=== PATIENT | female | born 1965 | race Caucasian/White ===

== ENCOUNTER 2021-07-20 08:19 | Outpatient (CLI) | payer OTHER, SELFPAY | END 2021-07-20 08:35 | disposition home or self-care (01) | LOC: INF 08:31 | PROVIDERS: PCP Nurse Practitioner; Visit Provider Internal Medicine | DX: Z45.2 Encounter for adjustment and management of vascular access device (principal) | CPT/HCPCS: 96523 ==

== ENCOUNTER 2021-07-26 08:09 | Outpatient (CLI) | payer OTHER, SELFPAY | END 2021-07-26 08:44 | disposition home or self-care (01) | LOC: INF 08:10 | PROVIDERS: PCP Nurse Practitioner; Visit Provider Internal Medicine | DX: Z45.2 Encounter for adjustment and management of vascular access device (principal) | CPT/HCPCS: 96523 ==

== ENCOUNTER 2021-08-09 11:02 | Outpatient (CLI) | payer OTHER, SELFPAY ==
[2021-08-09 11:14] VITALS: BMI 35.9
[2021-08-09 11:38] LABS: Basophils % 1.4 % (0.1-2.0); Eosinophils % 3.5 % (0.1-12.0); Hematocrit 25.1 % (37.0-47.0); Hemoglobin 9.1 g/dL (12.2-16.2); Lymphocytes # 0.6 K/mm3 (0.7-4.5); Lymphocytes % 61.8 % (10-50); Mean Corpuscular HGB Conc 36.2 g/dL (31.8-35.4); Mean Corpuscular Hemoglobin 34.3 pg (27.0-31.2); Mean Corpuscular Volume 94.6 fl (81-99); Mean Platelet Volume 7.2 fl (7.4-10.4); Monocytes # 0.1 K/mm3 (0.1-1.0); Monocytes % 12.1 % (1.7-9.3); Neutrophils # 0.2 K/mm3 (1.8-7.8); Neutrophils % 21.2 % (37.0-80.0); Platelet Count 175 K/mm3 (142-424); Red Blood Count 2.65 M/mm3 (4.20-5.40); Red Cell Distribution Width 20.1 % (11.5-17.5)
[2021-08-09 11:39] LABS: White Blood Count 0.9 K/mm3 (4.8-10.8)
[2021-08-09 11:41] LABS: MANUAL DIFFERENTIAL MANUAL DIFFERENTIAL (MANUAL DIFF)
--- NOTE | 2021-08-09 11:41 | PC.NURSE ---
critical lab result WBC of 0.9 were called by reginaldo in lab. lab result, and name were verified. aware, standing orders in place.
[2021-08-09 11:45] LABS: Chloride 102 mmol/L (98-107); Lymphocytes % 80 % (10-50); Monocytes % 7 % (2-9); Neutrophils % 13 % (42-76); Sodium 135 mmol/L (136-145); Total Cells Counted 15
[2021-08-09 11:46] LABS: Anisocytosis 1+; Hypochromasia 1+; Macrocytosis 1+; Platelet Estimate Normal; Poikilocytosis 1+; Potassium 4.2 mmoL/L (3.5-5.1)
[2021-08-09 11:48] LABS: Alanine Aminotransferase 43 U/L (12-78); Alkaline Phosphatase 98 U/L (38-126); Aspartate Amino Transferase 29 U/L (14-36); Bilirubin,Total 0.5 mg/dl (0.2-1.3); Blood Urea Nitrogen 14 mg/dl (7-17); Creatinine Clearance Estimated 115 mL/min (50-200); Estimated Glomerular Filt Rate 74 ml/min (>60); GFR (African American) 90 ML/MIN (>60)
[2021-08-09 11:49] LABS: Albumin/Globulin Ratio 1.5 (1.1-1.8); Anion Gap 13.2 mEq/L (5-15); Calcium 9.3 mg/dl (8.4-10.2); Carbon Dioxide 24 mmol/L (22.0-30.0); Globulin 2.6 g/dL (1.3-3.2); Glucose 136 mg/dl (74-100); Total Protein,Serum 6.6 g/dl (6.3-8.2)
[2021-08-09 11:55] VITALS: BP 143/80; PULSE 102; RESP 18; TEMP 36.6; O2SAT 97
== END 2021-08-09 11:50 | disposition home or self-care (01) ==
LOC: INF 11:06
PROVIDERS: PCP Nurse Practitioner
DX: C83.70 Burkitt lymphoma, unspecified site (principal); Z45.2 Encounter for adjustment and management of vascular access device
CPT/HCPCS: 36592; 80053; 85007; 85025

== ENCOUNTER 2021-08-12 10:22 | Outpatient (CLI) | payer OTHER, SELFPAY ==
[2021-08-12 10:28] VITALS: BMI 35.9
[2021-08-12 10:44] LABS: Basophils # 0.1 K/mm3 (0-0.2); Basophils % 0.8 % (0.1-2.0); Eosinophils # 0.1 K/mm3 (0.0-0.4); Hematocrit 28.5 % (37.0-47.0); Lymphocytes # 1.1 K/mm3 (0.7-4.5); Lymphocytes % 16.3 % (10-50); Mean Corpuscular HGB Conc 31.5 g/dL (31.8-35.4); Mean Corpuscular Hemoglobin 32.3 pg (27.0-31.2); Mean Corpuscular Volume 102.5 fl (81-99); Mean Platelet Volume 8.7 fl (7.4-10.4); Monocytes # 0.6 K/mm3 (0.1-1.0); Monocytes % 8.7 % (1.7-9.3); Neutrophils % 73.2 % (37.0-80.0); Platelet Count 275 K/mm3 (142-424); Red Blood Count 2.78 M/mm3 (4.20-5.40); White Blood Count 6.8 K/mm3 (4.8-10.8)
--- NOTE | 2021-08-12 10:50 | PC.NURSE ---
1050-pt d/c home lab work good and pt doesn't need blood per md order.
[2021-08-12 10:52] LABS: Alanine Aminotransferase 33 U/L (12-78); Albumin Level 3.6 g/dl (3.5-5.0); Albumin/Globulin Ratio 1.6 (1.1-1.8); Alkaline Phosphatase 93 U/L (38-126); Anion Gap 10.4 mEq/L (5-15); Aspartate Amino Transferase 29 U/L (14-36); Blood Urea Nitrogen 10 mg/dl (7-17); Calcium 8.7 mg/dl (8.4-10.2); Carbon Dioxide 26 mmol/L (22.0-30.0); Chloride 106 mmol/L (98-107); Creatinine Clearance Estimated 132 mL/min (50-200); Estimated Glomerular Filt Rate 87 ml/min (>60); GFR (African American) 105 ML/MIN (>60); Globulin 2.3 g/dL (1.3-3.2); Glucose 142 mg/dl (74-100); Potassium 3.4 mmoL/L (3.5-5.1); Sodium 139 mmol/L (136-145); Total Protein,Serum 5.9 g/dl (6.3-8.2)
[2021-08-12 10:54] LABS: Bilirubin,Total < 0.1 mg/dl (0.2-1.3)
== END 2021-08-12 10:50 | disposition home or self-care (01) ==
LOC: INF 10:22
PROVIDERS: PCP Nurse Practitioner
DX: C83.70 Burkitt lymphoma, unspecified site (principal); Z45.2 Encounter for adjustment and management of vascular access device
CPT/HCPCS: 36592; 80053; 85025

== ENCOUNTER 2021-08-16 10:21 | Outpatient (CLI) | payer OTHER, SELFPAY ==
[2021-08-16 10:29] VITALS: BMI 35.9
[2021-08-16 10:45] LABS: Basophils # 0.2 K/mm3 (0-0.2); Basophils % 1.5 % (0.1-2.0); Eosinophils # 0.4 K/mm3 (0.0-0.4); Eosinophils % 3.3 % (0.1-12.0); Hemoglobin 9.7 g/dL (12.2-16.2); Lymphocytes # 1.6 K/mm3 (0.7-4.5); Mean Corpuscular HGB Conc 32.3 g/dL (31.8-35.4); Mean Corpuscular Hemoglobin 34.3 pg (27.0-31.2); Mean Corpuscular Volume 106.2 fl (81-99); Mean Platelet Volume 8.2 fl (7.4-10.4); Monocytes # 0.9 K/mm3 (0.1-1.0); Monocytes % 7.7 % (1.7-9.3); Neutrophils # 8.5 K/mm3 (1.8-7.8); Neutrophils % 73.6 % (37.0-80.0); Platelet Count 460 K/mm3 (142-424); Red Blood Count 2.83 M/mm3 (4.20-5.40); Red Cell Distribution Width 21.5 % (11.5-17.5); White Blood Count 11.5 K/mm3 (4.8-10.8)
[2021-08-16 10:46] LABS: Chloride 106 mmol/L (98-107)
[2021-08-16 10:47] LABS: Potassium 4.2 mmoL/L (3.5-5.1); Sodium 139 mmol/L (136-145)
[2021-08-16 10:49] LABS: Alanine Aminotransferase 49 U/L (12-78); Aspartate Amino Transferase 46 U/L (14-36); Blood Urea Nitrogen 8 mg/dl (7-17); Creatinine Clearance Estimated 115 mL/min (50-200); Estimated Glomerular Filt Rate 74 ml/min (>60); GFR (African American) 90 ML/MIN (>60)
[2021-08-16 10:50] LABS: Albumin Level 3.9 g/dl (3.5-5.0); Albumin/Globulin Ratio 1.7 (1.1-1.8); Alkaline Phosphatase 105 U/L (38-126); Anion Gap 10.2 mEq/L (5-15); Bilirubin,Total 0.2 mg/dl (0.2-1.3); Calcium 9.5 mg/dl (8.4-10.2); Carbon Dioxide 27 mmol/L (22.0-30.0); Globulin 2.3 g/dL (1.3-3.2); Glucose 154 mg/dl (74-100); Total Protein,Serum 6.2 g/dl (6.3-8.2)
--- NOTE | 2021-08-16 11:00 | PC.NURSE ---
1100-pt d/c home for hgb 9.7 and plt 460
== END 2021-08-16 11:00 | disposition home or self-care (01) ==
LOC: INF 10:22
PROVIDERS: PCP Nurse Practitioner
DX: C83.70 Burkitt lymphoma, unspecified site (principal); Z45.2 Encounter for adjustment and management of vascular access device
CPT/HCPCS: 36592; 80053; 85025; J1642

== ENCOUNTER 2021-08-26 09:57 | Outpatient (CLI) | payer OTHER, SELFPAY ==
[2021-08-26 10:02] VITALS: BMI 35.9
[2021-08-26 10:18] LABS: Eosinophils # 0.5 K/mm3 (0.0-0.4); Eosinophils % 7.7 % (0.1-12.0); Hematocrit 25.3 % (37.0-47.0); Hemoglobin 8.7 g/dL (12.2-16.2); Lymphocytes # 0.6 K/mm3 (0.7-4.5); Lymphocytes % 8.2 % (10-50); Mean Corpuscular HGB Conc 34.2 g/dL (31.8-35.4); Mean Corpuscular Hemoglobin 33.7 pg (27.0-31.2); Mean Corpuscular Volume 98.4 fl (81-99); Monocytes # 0.1 K/mm3 (0.1-1.0); Monocytes % 0.9 % (1.7-9.3); Neutrophils # 5.7 K/mm3 (1.8-7.8); Neutrophils % 83.2 % (37.0-80.0); Platelet Count 363 K/mm3 (142-424); Red Blood Count 2.57 M/mm3 (4.20-5.40); Red Cell Distribution Width 18.4 % (11.5-17.5); White Blood Count 6.8 K/mm3 (4.8-10.8)
[2021-08-26 10:19] LABS: Chloride 102 mmol/L (98-107); Sodium 136 mmol/L (136-145)
[2021-08-26 10:22] LABS: Alanine Aminotransferase 54 U/L (12-78); Albumin Level 3.7 g/dl (3.5-5.0); Albumin/Globulin Ratio 1.8 (1.1-1.8); Alkaline Phosphatase 77 U/L (38-126); Aspartate Amino Transferase 45 U/L (14-36); Bilirubin,Total 0.5 mg/dl (0.2-1.3); Blood Urea Nitrogen 17 mg/dl (7-17); Carbon Dioxide 28 mmol/L (22.0-30.0); Creatinine Clearance Estimated 154 mL/min (50-200); Estimated Glomerular Filt Rate 104 ml/min (>60); GFR (African American) 126 ML/MIN (>60); Globulin 2.1 g/dL (1.3-3.2); Total Protein,Serum 5.8 g/dl (6.3-8.2)
[2021-08-26 10:23] LABS: Calcium 9.4 mg/dl (8.4-10.2); Glucose 191 mg/dl (74-100)
--- NOTE | 2021-08-26 12:25 | PC.NURSE ---
1030-HGB 8.7 AND PLT 363 PT DOES NOT NEED BLOOD OR PLATELETS;PT TO D/C HOME AND RETURN NEXT SUNDAY
== END 2021-08-26 10:30 | disposition home or self-care (01) ==
LOC: INF 09:58
PROVIDERS: PCP Nurse Practitioner
DX: C83.70 Burkitt lymphoma, unspecified site (principal); Z45.2 Encounter for adjustment and management of vascular access device; Z48.00 Encounter for change or removal of nonsurgical wound dressing
CPT/HCPCS: 36592; 80053; 85025; J1642

== ENCOUNTER 2021-08-30 10:38 | Outpatient (CLI) | payer OTHER, SELFPAY ==
[2021-08-30 10:44] VITALS: BMI 35.9
[2021-08-30 11:00] LABS: Basophils % 0.6 % (0.1-2.0); Eosinophils # 0.1 K/mm3 (0.0-0.4); Eosinophils % 12.6 % (0.1-12.0); Hematocrit 24.1 % (37.0-47.0); Hemoglobin 8.5 g/dL (12.2-16.2); Lymphocytes # 0.6 K/mm3 (0.7-4.5); Mean Corpuscular HGB Conc 35.5 g/dL (31.8-35.4); Mean Corpuscular Hemoglobin 34.9 pg (27.0-31.2); Mean Corpuscular Volume 98.3 fl (81-99); Mean Platelet Volume 7.4 fl (7.4-10.4); Monocytes % 3.4 % (1.7-9.3); Neutrophils # 0.2 K/mm3 (1.8-7.8); Neutrophils % 20.4 % (37.0-80.0); Platelet Count 230 K/mm3 (142-424); Red Blood Count 2.45 M/mm3 (4.20-5.40); Red Cell Distribution Width 17.9 % (11.5-17.5)
--- NOTE | 2021-08-30 11:00 | PC.NURSE ---
1100-Katrina Garcia called rn at 1100 to report wbc 0.9. RN repeated and verified pt name, , and lab value.Result called to and no new orders received.
[2021-08-30 11:01] LABS: MANUAL DIFFERENTIAL MANUAL DIFFERENTIAL (MANUAL DIFF); White Blood Count 0.9 K/mm3 (4.8-10.8)
[2021-08-30 11:04] LABS: Alanine Aminotransferase 65 U/L (12-78); Albumin Level 3.9 g/dl (3.5-5.0); Albumin/Globulin Ratio 1.6 (1.1-1.8); Alkaline Phosphatase 100 U/L (38-126); Anion Gap 12.2 mEq/L (5-15); Aspartate Amino Transferase 41 U/L (14-36); Blood Urea Nitrogen 14 mg/dl (7-17); Calcium 9.4 mg/dl (8.4-10.2); Carbon Dioxide 23 mmol/L (22.0-30.0); Chloride 106 mmol/L (98-107); Creatinine Clearance Estimated 115 mL/min (50-200); Estimated Glomerular Filt Rate 74 ml/min (>60); GFR (African American) 90 ML/MIN (>60); Globulin 2.5 g/dL (1.3-3.2); Glucose 147 mg/dl (74-100); Potassium 4.2 mmoL/L (3.5-5.1); Sodium 137 mmol/L (136-145); Total Protein,Serum 6.4 g/dl (6.3-8.2)
[2021-08-30 11:10] LABS: Bilirubin,Total < 0.1 mg/dl (0.2-1.3)
[2021-08-30 11:19] LABS: Eosinophils % 4 % (0-3); Hypochromasia 1+; Lymphocytes % 64 % (10-50); Monocytes % 4 % (2-9); Neutrophils % 28 % (42-76); Ovalocytes 1+; Total Cells Counted 25
[2021-08-30 11:20] LABS: Anisocytosis 1+; Macrocytosis 1+; Platelet Estimate Normal
== END 2021-08-30 11:03 | disposition home or self-care (01) ==
LOC: INF 10:39
PROVIDERS: PCP Nurse Practitioner
DX: C83.70 Burkitt lymphoma, unspecified site (principal)
CPT/HCPCS: 36592; 80053; 85007; 85025

== ENCOUNTER 2021-08-30 11:00 | Outpatient (RCR) | payer OTHER, SELFPAY | END 2021-08-30 11:05 | disposition home or self-care (01) | LOC: PT 11:00 | DX: C83.7 Burkitt lymphoma (principal); G72.81 Critical illness myopathy; Z74.09 Other reduced mobility | CPT/HCPCS: 97110; 97163; 97164; 97530; 97535 ==

== ENCOUNTER 2021-08-30 11:00 | Outpatient (RCR) | payer SELFPAY | END 2021-08-30 11:05 | disposition home or self-care (01) | LOC: OT 11:00 | DX: C83.7 Burkitt lymphoma (principal); Z74.09 Other reduced mobility; G72.81 Critical illness myopathy | CPT/HCPCS: 97110; 97164; 97165; 97530 ==

== ENCOUNTER 2021-09-02 09:08 | Outpatient (CLI) | payer OTHER, SELFPAY ==
[2021-09-02 09:13] VITALS: BMI 35.9
[2021-09-02 09:33] LABS: Basophils % 0.9 % (0.1-2.0); Eosinophils # 0.1 K/mm3 (0.0-0.4); Eosinophils % 14.4 % (0.1-12.0); Hematocrit 25.9 % (37.0-47.0); Hemoglobin 8.5 g/dL (12.2-16.2); Lymphocytes # 0.6 K/mm3 (0.7-4.5); Lymphocytes % 66.2 % (10-50); Mean Corpuscular HGB Conc 32.8 g/dL (31.8-35.4); Mean Corpuscular Hemoglobin 34.7 pg (27.0-31.2); Mean Corpuscular Volume 105.9 fl (81-99); Mean Platelet Volume 7.9 fl (7.4-10.4); Monocytes # 0.1 K/mm3 (0.1-1.0); Monocytes % 13.3 % (1.7-9.3); Neutrophils # 0.1 K/mm3 (1.8-7.8); Platelet Count 307 K/mm3 (142-424); Red Blood Count 2.45 M/mm3 (4.20-5.40); Red Cell Distribution Width 19.6 % (11.5-17.5)
[2021-09-02 09:37] LABS: Neutrophils % 5.2 % (37.0-80.0)
[2021-09-02 09:38] LABS: White Blood Count 0.9 K/mm3 (4.8-10.8)
[2021-09-02 09:39] LABS: Alanine Aminotransferase 49 U/L (12-78); Albumin Level 3.7 g/dl (3.5-5.0); Albumin/Globulin Ratio 1.6 (1.1-1.8); Alkaline Phosphatase 100 U/L (38-126); Anion Gap 7.7 mEq/L (5-15); Aspartate Amino Transferase 35 U/L (14-36); Blood Urea Nitrogen 9 mg/dl (7-17); Calcium 9.1 mg/dl (8.4-10.2); Carbon Dioxide 27 mmol/L (22.0-30.0); Chloride 108 mmol/L (98-107); Creatinine Clearance Estimated 154 mL/min (50-200); Estimated Glomerular Filt Rate 104 ml/min (>60); GFR (African American) 126 ML/MIN (>60); Globulin 2.3 g/dL (1.3-3.2); Glucose 148 mg/dl (74-100); MANUAL DIFFERENTIAL MANUAL DIFFERENTIAL (MANUAL DIFF); Potassium 3.7 mmoL/L (3.5-5.1); Sodium 139 mmol/L (136-145)
[2021-09-02 09:40] LABS: Bilirubin,Total < 0.1 mg/dl (0.2-1.3)
--- NOTE | 2021-09-02 09:53 | PC.NURSE ---
0940 - DANIELE IRENE CALLED RN AT 0938 TO REPORT WBC 0.9. RN REPEATED AND VERIFIED PT NAME, , AND LAB VALUE. RESULT CALLED TO DR LEA'S OFFICE AND NO NEW ORDERS RECEIVED.
[2021-09-02 10:37] LABS: Acanthocytes 1+; Eosinophils % 24 % (0-3); Lymphocytes % 56 % (10-50); Monocytes % 4 % (2-9); Neutrophils % 12 % (42-76); Stomatocytes 2+; Total Cells Counted 25
[2021-09-02 10:38] LABS: Polychromasia 1+
[2021-09-02 10:39] LABS: Ovalocytes 1+; Platelet Estimate Normal
[2021-09-02 10:40] LABS: Giant Platelets 1+
== END 2021-09-02 09:41 | disposition home or self-care (01) ==
LOC: INF 09:09
PROVIDERS: PCP Nurse Practitioner
DX: C83.70 Burkitt lymphoma, unspecified site (principal); Z45.2 Encounter for adjustment and management of vascular access device
CPT/HCPCS: 36592; 80053; 85007; 85025; J1642

== ENCOUNTER 2021-09-06 08:49 | Outpatient (CLI) | payer OTHER, SELFPAY ==
[2021-09-06 08:55] VITALS: BMI 35.9
[2021-09-06 09:20] LABS: Basophils % 1.8 % (0.1-2.0); Eosinophils # 0.4 K/mm3 (0.0-0.4); Eosinophils % 15.1 % (0.1-12.0); Hematocrit 29.6 % (37.0-47.0); Hemoglobin 9.4 g/dL (12.2-16.2); Lymphocytes # 0.9 K/mm3 (0.7-4.5); Lymphocytes % 37.1 % (10-50); Mean Corpuscular HGB Conc 31.6 g/dL (31.8-35.4); Mean Corpuscular Volume 107.7 fl (81-99); Mean Platelet Volume 7.9 fl (7.4-10.4); Monocytes # 0.6 K/mm3 (0.1-1.0); Monocytes % 24.9 % (1.7-9.3); Neutrophils # 0.5 K/mm3 (1.8-7.8); Neutrophils % 21.1 % (37.0-80.0); Platelet Count 592 K/mm3 (142-424); Red Blood Count 2.75 M/mm3 (4.20-5.40); Red Cell Distribution Width 18.8 % (11.5-17.5); White Blood Count 2.4 K/mm3 (4.8-10.8)
[2021-09-06 09:23] LABS: Chloride 105 mmol/L (98-107)
[2021-09-06 09:24] LABS: Potassium 4.1 mmoL/L (3.5-5.1); Sodium 138 mmol/L (136-145)
[2021-09-06 09:26] LABS: Alanine Aminotransferase 43 U/L (12-78); Alkaline Phosphatase 113 U/L (38-126); Anion Gap 9.1 mEq/L (5-15); Aspartate Amino Transferase 36 U/L (14-36); Blood Urea Nitrogen 10 mg/dl (7-17); Carbon Dioxide 28 mmol/L (22.0-30.0); Creatinine Clearance Estimated 115 mL/min (50-200); Estimated Glomerular Filt Rate 74 ml/min (>60); GFR (African American) 90 ML/MIN (>60)
[2021-09-06 09:27] LABS: Albumin Level 3.9 g/dl (3.5-5.0); Albumin/Globulin Ratio 1.6 (1.1-1.8); Calcium 9.6 mg/dl (8.4-10.2); Globulin 2.4 g/dL (1.3-3.2); Glucose 135 mg/dl (74-100); Total Protein,Serum 6.3 g/dl (6.3-8.2)
[2021-09-06 09:32] LABS: Bilirubin,Total < 0.1 mg/dl (0.2-1.3); MANUAL DIFFERENTIAL MANUAL DIFFERENTIAL (MANUAL DIFF)
[2021-09-06 10:05] LABS: Eosinophils % 4 % (0-3); Lymphocytes % 36 % (10-50); Monocytes % 28 % (2-9); Neutrophils % 28 % (42-76); Total Cells Counted 25
[2021-09-06 10:06] LABS: Hypochromasia 1+; Macrocytosis 2+; Platelet Estimate Moderate Increase
[2021-09-06 10:07] LABS: Anisocytosis 1+
== END 2021-09-06 09:25 | disposition home or self-care (01) ==
LOC: INF 08:50
PROVIDERS: PCP Nurse Practitioner
DX: C83.70 Burkitt lymphoma, unspecified site (principal)
CPT/HCPCS: 36592; 80053; 85007; 85025

== ENCOUNTER 2021-09-16 11:01 | Outpatient (CLI) | payer OTHER, SELFPAY ==
[2021-09-16 11:06] VITALS: BMI 35.9
[2021-09-16 11:28] LABS: Basophils % 0.1 % (0.1-2.0); Chloride 104 mmol/L (98-107); Eosinophils # 0.2 K/mm3 (0.0-0.4); Eosinophils % 2.2 % (0.1-12.0); Hematocrit 29.6 % (37.0-47.0); Hemoglobin 9.3 g/dL (12.2-16.2); Lymphocytes # 0.4 K/mm3 (0.7-4.5); Lymphocytes % 3.2 % (10-50); Mean Corpuscular HGB Conc 31.5 g/dL (31.8-35.4); Mean Corpuscular Hemoglobin 33.5 pg (27.0-31.2); Mean Corpuscular Volume 106.1 fl (81-99); Mean Platelet Volume 7.6 fl (7.4-10.4); Monocytes # 0.1 K/mm3 (0.1-1.0); Monocytes % 0.9 % (1.7-9.3); Neutrophils # 10.2 K/mm3 (1.8-7.8); Neutrophils % 93.5 % (37.0-80.0); Platelet Count 522 K/mm3 (142-424); Red Blood Count 2.79 M/mm3 (4.20-5.40); Red Cell Distribution Width 17.3 % (11.5-17.5); White Blood Count 10.9 K/mm3 (4.8-10.8)
[2021-09-16 11:29] LABS: Potassium 3.9 mmoL/L (3.5-5.1); Sodium 136 mmol/L (136-145)
[2021-09-16 11:30] LABS: MANUAL DIFFERENTIAL MANUAL DIFFERENTIAL (MANUAL DIFF)
[2021-09-16 11:31] LABS: Alanine Aminotransferase 74 U/L (12-78); Alkaline Phosphatase 91 U/L (38-126); Aspartate Amino Transferase 94 U/L (14-36); Blood Urea Nitrogen 22 mg/dl (7-17); Creatinine Clearance Estimated 132 mL/min (50-200); Estimated Glomerular Filt Rate 87 ml/min (>60); GFR (African American) 105 ML/MIN (>60)
[2021-09-16 11:32] LABS: Albumin Level 3.7 g/dl (3.5-5.0); Albumin/Globulin Ratio 1.7 (1.1-1.8); Anion Gap 10.9 mEq/L (5-15); Bilirubin,Total 0.1 mg/dl (0.2-1.3); Calcium 9.3 mg/dl (8.4-10.2); Carbon Dioxide 25 mmol/L (22.0-30.0); Globulin 2.2 g/dL (1.3-3.2); Glucose 167 mg/dl (74-100); Total Protein,Serum 5.9 g/dl (6.3-8.2)
[2021-09-16 12:07] LABS: Anisocytosis 1+; Hypochromasia 1+; Lymphocytes % 4 % (10-50); Macrocytosis 1+; Neutrophils % 96 % (42-76); Ovalocytes 1+; Platelet Estimate Slight Increase; Total Cells Counted 100
== END 2021-09-16 11:36 | disposition home or self-care (01) ==
LOC: INF 11:02
PROVIDERS: PCP Nurse Practitioner
DX: C83.70 Burkitt lymphoma, unspecified site (principal); Z45.2 Encounter for adjustment and management of vascular access device
CPT/HCPCS: 36592; 80053; 85007; 85025

== ENCOUNTER 2021-09-19 09:50 | Emergency (ER) | payer OTHER, SELFPAY ==
[2021-09-19 10:15] VITALS: BP 128/82; PULSE 101; RESP 19; TEMP 36.9; O2SAT 98; BMI 34.3
--- NOTE | 2021-09-19 10:35 | HMH.EDUTC ---
[facility] [place] Clinical Impression: Bronchitis Sinusitis Qualifiers: Sinusitis location: unspecified location Chronicity: unspecified Qualified Code(s): J32.9 - Chronic sinusitis, unspecified Disposition: Home, Self-Care Condition on Discharge: Good Instructions: Sinusitis, Acute Bronchitis, DI for Sinusitis Additional Instructions: *Monitor Temp, Over the counter Motrin or Tylenol as directed/as needed Tylenol every 4 hours and Motrin every 6 hours (as long as your family doctor has told you that you can take it) for fever or pain. and straight to ER if unable to lower temp less than 101.0 after medication given *Warm salt water gargles may help to soothe the throat *Throat Lozenges *Warm fluids like tea with honey may help to soothe the throat *Sleep elevated *Humidifier/Vaporizer Take medication as prescribed Follow up IMMEDIATELY for new or worsening symptoms or no Noticeable improvement over the next 48-72 hours. 911 for difficulty breathing or swallowing Straight to ER if any life threatening symptoms Prescriptions: Cefdinir [Omnicef 300mg Capsule] 300 mg PO BID #20 cap Transmission Status: Received by [facility] [id number] Referrals: Jessica Strickland APRN [Primary Care Provider] - As needed Time of Disposition: 10:44 Medical Decision Making - Declan Inquiry Pt receiving controlled substance: No Declan was queried for this patient: No Vital Signs: 09/19/21 10:15 09/19/21 10:49 Temperature 98.4 F 98.4 F Temperature Source Oral Pulse Rate 101 H Pulse Rate [Right Brachial] 101 H Respiratory Rate 19 19 Blood Pressure 128/82 Blood Pressure [Right Arm] 128/82 Blood Pressure Mean [Right Arm] 97 Blood Pressure Source [Right Arm] Automatic Cuff Blood Pressure Position [Right Arm] Sitting 02 Sat by Pulse Oximetry 98 Oxygen Delivery Method Room Air Medical Decision Narrative: Discussed CXR and even transfer to the ED due to patients history and currently on Chemo and patient declined [facility] [place] - General Stated complaint: sore mouth is on chemo Time Seen by Provider: 09/19/21 10:20 Mode of Arrival: Ambulatory Source of Information: Patient Limitations: No Limitations Description of Symptoms (Recalled from Triage Doc. by RN): PATIENT C/O COUGH, SORE THROAT, AND CHEST CONGESTION X 2 DAYS HEENT Symptoms (Recalled from RN notes): Yes Resp Symptoms (Recalled from RN notes): Yes Skin Symptoms (Recalled from RN notes): No MS Symptoms (Recalled from RN notes): No Functional Status (Recalled from RN notes): WNL - History of Present Illness Provider Complaint: Patient states that she has been having cough, sore throat and sinus congestion and feels like it is trying to move into her chest States that she is on Chemo and wanted to get it checked out before it got too bad Denies SOA - Related Data Home Medications Medication Instructions Recorded Confirmed Acyclovir 800 mg PO DAILY 08/12/21 08/12/21 Albuterol Sulfate [Albuterol 8.5 gm IH DAILY PRN 08/12/21 08/12/21 Sulfate Hfa] Amlodipine Besylate 10 mg PO DAILY 08/12/21 08/12/21 Ascorbic Acid [Vitamin C] 500 mg PO DAILY 08/12/21 08/12/21 Calcium Carbonate/Vitamin D3 1 each PO DAILY 08/12/21 08/12/21 [Calcium 600-Vit D3 200 Tablet] Cetirizine HCl 10 mg PO HS 08/12/21 08/12/21 Cholestyramine/Aspartame 4 gm PO DAILY 08/12/21 08/12/21 [Cholestyramine Light Packet] Cyanocobalamin (Vitamin B-12) 1,000 mcg IM MONTHLY 08/12/21 08/12/21 [Cyanocobalamin 1,000mcg/mL Vial] Cyclobenzaprine HCl 5 mg PO TIDP PRN 08/12/21 08/12/21 [Cyclobenzaprine 5mg Tab*] Dexlansoprazole [Dexlansoprazole 60 mg PO DAILY 08/12/21 08/12/21 Dr] Duloxetine HCl 40 mg PO DAILY 08/12/21 08/12/21 Fluticasone Propionate [Flonase 1 spray NS DAILY 08/12/21 08/12/21 Allergy Relief NS] LORazepam [Lorazepam 0.5mg Tablet] 0.5 mg PO DAILY 08/12/21 08/12/21 Metformin HCl [Metformin HCl ER] 500 mg PO DAILY 08/12/21 08/12/21 Montelukast Sodium 10 mg PO DAILY 0
[2021-09-19 10:49] VITALS: BP 128/82; PULSE 101; RESP 19; TEMP 36.9; O2SAT 98
== END 2021-09-19 10:52 | disposition home or self-care (01) ==
PROVIDERS: Emergency Provider Nurse Practitioner; PCP Nurse Practitioner
DX: J40 Bronchitis, not specified as acute or chronic (principal)
CPT/HCPCS: 99212; G0463

== ENCOUNTER 2021-09-20 10:59 | Outpatient (CLI) | payer OTHER, SELFPAY ==
[2021-09-20 11:05] VITALS: BMI 35.9
[2021-09-20 11:40] LABS: Basophils % 2.6 % (0.1-2.0); Eosinophils % 7.6 % (0.1-12.0); Hemoglobin 8.5 g/dL (12.2-16.2); Lymphocytes # 0.2 K/mm3 (0.7-4.5); Mean Corpuscular HGB Conc 31.5 g/dL (31.8-35.4); Mean Corpuscular Hemoglobin 33.5 pg (27.0-31.2); Mean Corpuscular Volume 106.6 fl (81-99); Mean Platelet Volume 8.6 fl (7.4-10.4); Monocytes # 0.1 K/mm3 (0.1-1.0); Monocytes % 18.7 % (1.7-9.3); Platelet Count 158 K/mm3 (142-424); Red Blood Count 2.53 M/mm3 (4.20-5.40); Red Cell Distribution Width 16.8 % (11.5-17.5)
[2021-09-20 11:44] LABS: Chloride 102 mmol/L (98-107); Potassium 4.1 mmoL/L (3.5-5.1); Sodium 136 mmol/L (136-145)
[2021-09-20 11:46] LABS: Alanine Aminotransferase 66 U/L (12-78); Aspartate Amino Transferase 63 U/L (14-36); Blood Urea Nitrogen 11 mg/dl (7-17); Creatinine Clearance Estimated 115 mL/min (50-200); Estimated Glomerular Filt Rate 74 ml/min (>60); GFR (African American) 90 ML/MIN (>60)
[2021-09-20 11:47] LABS: Albumin Level 3.9 g/dl (3.5-5.0); Albumin/Globulin Ratio 1.6 (1.1-1.8); Alkaline Phosphatase 72 U/L (38-126); Anion Gap 9.1 mEq/L (5-15); Bilirubin,Total < 0.1 mg/dl (0.2-1.3); Calcium 9.3 mg/dl (8.4-10.2); Carbon Dioxide 29 mmol/L (22.0-30.0); Globulin 2.5 g/dL (1.3-3.2); Glucose 171 mg/dl (74-100); Total Protein,Serum 6.4 g/dl (6.3-8.2)
[2021-09-20 11:49] LABS: Neutrophils % 13.1 % (37.0-80.0)
[2021-09-20 11:50] LABS: White Blood Count 0.3 K/mm3 (4.8-10.8)
[2021-09-20 11:51] LABS: MANUAL DIFFERENTIAL MANUAL DIFFERENTIAL (MANUAL DIFF)
[2021-09-20 12:07] LABS: Lymphocytes % 72 % (10-50); Monocytes % 4 % (2-9); Neutrophils % 16 % (42-76); Total Cells Counted 25
[2021-09-20 12:08] LABS: Anisocytosis 1+; Hypochromasia 1+; Macrocytosis 1+; Platelet Estimate Normal
--- NOTE | 2021-09-20 12:37 | PC.NURSE ---
critical lab result called from marco a arellano in the lab. WBC of 0.3. lab result, and name repeated and verified. Pt oncologist was notified, recommended pt be seen in the ER.
== END 2021-09-20 12:25 | disposition home or self-care (01) ==
LOC: INF 11:00
PROVIDERS: PCP Nurse Practitioner
DX: C83.70 Burkitt lymphoma, unspecified site (principal); Z45.2 Encounter for adjustment and management of vascular access device
CPT/HCPCS: 36415; 80053; 85007; 85025; J1642

== ENCOUNTER 2021-09-20 12:17 | Inpatient (IN) | payer OTHER, SELFPAY ==
[2021-09-20] VITALS (19 sets, daily range): BP systolic 117–156; BP diastolic 59–99; PULSE 107–124; RESP 15–19; TEMP 36.6–38.2; O2SAT 96–100; BMI 35.4; BMI 35.1
--- NOTE | 2021-09-20 12:58 | CT_ITS ---
FINAL REPORT TECHNIQUE: Then section axial CT images of the chest were obtained with contrast. Three-D reformatted images were also obtained.This study was performed with techniques to keep radiation doses as low as reasonably achievable (ALARA). Individualized dose reduction techniques using automated exposure control or adjustment of mA and/or kV according to the patient''s size were employed. CLINICAL HISTORY: tachy, cancer (burketts lymphoma, chest pressure FINDINGS: Motion obscures some of the lower lobe branches. There is no evidence of pulmonary embolism. There is no evidence of thoracic aortic aneurysm or dissection. There is no evidence of mediastinal or hilar mass or adenopathy. There is mild diffuse esophageal wall thickening, favor inflammatory. There is no evidence of pulmonary mass or suspicious nodule. There is mild bibasilar atelectasis. Limited images of the upper abdomen are unremarkable. IMPRESSION: 1. No evidence of pulmonary embolism. 2. Diffuse esophageal wall thickening, favor inflammatory. 3. Mild bibasilar atelectasis. Reviewed, Interpreted and Dictated by Rojas Chase III, MD Transcribed by Hannah Matthew Authenticated and [facility]
--- NOTE | 2021-09-20 12:59 | HMH.EDGENADL ---
ED Disposition Clinical Impression: Neutropenic fever Disposition: Admitted As Inpatient Condition on Discharge: Good - Critical Care Critical Care Time: No Attestation: On 09/20/21, the high probability of a clinically significant, sudden or life threatening deterioration of the following system(s) required my full and direct attention, intervention and personal management. The time I documented below is in addition to time spent performing reported procedures but includes the following listed in this critical care notation. Medical Decision Making - Declan Inquiry Pt receiving controlled substance: No Vital Signs: 09/20/21 12:19 09/20/21 13:32 09/20/21 14:02 Temperature 100.7 F H Temperature Source Oral Pulse Rate 110 H 115 H Pulse Rate [Right Radial] 114 H Respiratory Rate 15 Blood Pressure 151/91 H 140/91 H Blood Pressure [Right Arm] 156/92 H Blood Pressure Mean 100 Blood Pressure Mean [Right Arm] 113 Blood Pressure Source Automatic Cuff Blood Pressure Source [Right Arm] Automatic Cuff Blood Pressure Position Sitting Blood Pressure Position [Right Arm] Sitting 02 Sat by Pulse Oximetry 100 96 97 Oxygen Delivery Method Room Air Room Air Room Air 09/20/21 14:17 09/20/21 14:32 Temperature Temperature Source Pulse Rate 109 H 118 H Pulse Rate [Right Radial] Respiratory Rate Blood Pressure 137/88 128/88 Blood Pressure [Right Arm] Blood Pressure Mean 101 99 Blood Pressure Mean [Right Arm] Blood Pressure Source Blood Pressure Source [Right Arm] Blood Pressure Position Blood Pressure Position [Right Arm] 02 Sat by Pulse Oximetry 97 97 Oxygen Delivery Method Room Air Room Air - Lab Data Lab Results 09/20/21 11:23: Troponin I < 0.01 09/20/21 11:23: Phosphorus 4.0, Magnesium 1.6, Lactate Dehydrogenase 219 L 09/20/21 11:23: Uric Acid 3.7 09/20/21 12:37: Urine Color Yellow, Urine Appearance Clear, Urine pH 6.0, Ur Specific [place] 1.020, Urine Protein Negative, Urine Glucose (UA) Negative, Urine Ketones Negative, Urine Blood Negative, Urine Nitrate Negative, Urine Bilirubin Negative, Urine Urobilinogen 0.2, Ur Leukocyte Esterase Negative, Urine RBC None, Urine WBC Occasional, Ur Squamous Epith Cells 5-10, Urine Bacteria Trace, Urine Mucus Trace 09/20/21 12:37: SARS-CoV-2 (PCR) Detected A, Influenza A Untype (PCR) Not detected, Influenza Type B (PCR) Not detected Orders (Tests/Meds): ED MEDICATIONS Generic Name Dose Route Start Last Admin Trade Name Frelorenzo PRN Reason Stop Dose Admin Fluconazole 200 mg in 100 mls @ 200 mls/hr 09/21/21 16:00 Diflucan 200mg/100ml Ivpb IV 10/05/21 15:59 Q24H EMA Acyclovir Sodium 500 mg/ 250 mls @ 250 mls/hr 09/20/21 15:45 Sodium Chloride IV 09/27/21 15:44 Q8H EMA Discontinued Medications Generic Name Dose Route Start Last Admin Trade Name Freq PRN Reason Stop Dose Admin Heparin Sodium (Porcine) 500 unit 09/20/21 12:39 Heparin Lock Flush 500 Units/5ml Syr IV 10/20/21 12:38 NEEDED PRN MAINTAIN IV SITE Heparin Sodium (Porcine) 1,000 unit 09/20/21 12:39 Heparin Lock Flush 500 Units/5ml Syr IV 09/20/21 12:40 ONCE ONE Cefepime HCl 2 gm/ Sodium 100 mls @ 200 mls/hr 09/20/21 12:55 09/20/21 13:18 Chloride IV 09/20/21 13:24 200 mls/hr ONCE ONE Administration Fluconazole 400 mg in 200 mls @ 400 mls/hr 09/20/21 15:45 09/20/21 15:59 Diflucan 400mg/200ml Premix Ivpb IV 09/20/21 16:14 400 mls/hr ONCE ONE Administration Iopamidol 75 ml 09/20/21 13:33 09/20/21 13:34 Iopamidol-370 (76%);100ml Bottle IV 09/20/21 13:34 75 ml ONCE ONE Administration Sodium Chloride 10 ml 09/20/21 12:39 Sodium Chloride 0.9% 10ml Flush Syringe IV 10/20/21 12:38 NEEDED PRN Maintain IV Site Sodium Chloride 20 ml 09/20/21 12:39 Sodium Chloride 0.9% 10ml Flush Syringe IV 09/20/21 12:40 ONCE ONE Sodium Chloride 50 ml 09/20/21 13:33
[2021-09-20 13:17] LABS: Influenza A, PCR Not Detected (NotDetected); Influenza B, PCR Not Detected (NotDetected); Microscopic, Urine URINE MICROSCOPIC (MICROSCOPIC)
--- NOTE | 2021-09-20 13:19 | PC.NURSE ---
Pt to radf
[2021-09-20 13:22] LABS: Appearance,Urine CLEAR (Clear); Bilirubin,Urine Negative (Negative); Blood, Urine Negative (Negative); Color,Urine YELLOW (Yellow); Glucose,Urine (UA) Negative (Negative); Ketones,Urine Negative (Negative); Leukocyte Esterase,Urine Negative (Negative); Nitrate,Urine Negative (Negative); Protein,Urine Negative (Negative); Urobilinogen,Urine 0.2 EU/dl (0.2)
[2021-09-20 13:34] LABS: Bacteria,Urine Trace /lpf; Mucus,Urine Trace /lpf; WBC,Urine Occasional #/hpf (0-3)
--- NOTE | 2021-09-20 13:43 | ECG_ITS ---
APPROVED REPORT Exam: Resting ECG HR:111 bpm ECG Measurements Heart Rate 111 AXES PA 140 P 50 QRSd 99 QRS 45 QT 307 T 62 QTc 372 Conclusion SINUS TACHYCARDIA INCOMPLETE RIGHT BUNDLE BRANCH BLOCK [90+ ms QRS DURATION, TERMINAL R IN V1/V2, 40+ ms S IN I/aVL/V4/V5/V6] ABNORMAL RHYTHM ECG UNCONFIRMED REPORT Electronically signed by : Reese Fernandez MD 09/21/2021 07:56:48
[2021-09-20 13:48] LABS: Troponin I < 0.01 ng/ml (0.00-0.034)
--- NOTE | 2021-09-20 13:56 | PC.NURSE ---
pt given saltine crackers and ice chips, okay's per ER . Dr. Whitt told patient to eat light until we get scan back. She has no other needs at this time. Family at BS
[2021-09-20 13:58] LABS: Coronavirus 19, PCR Detected (NotDetected)
--- NOTE | 2021-09-20 15:15 | PC.NURSE ---
Speaking with Rachele with [facility] regarding possible patient transfer to [facility].
--- NOTE | 2021-09-20 15:22 | PC.NURSE ---
JESSY VALENCIA speaking with [facility] at this time.
--- NOTE | 2021-09-20 15:42 | PC.NURSE ---
called pharmacy for med dosages for acyclovir and fluconazole IV for Dx of esophigities
[2021-09-20 15:48] LABS: Lactate Dehydrogenase 219 U/L (313-618); Magnesium 1.6 mg/dl (1.6-2.3); Uric Acid 3.7 mg/dl (2.5-6.2)
--- NOTE | 2021-09-20 16:04 | PC.NURSE ---
dietary called for sandwich
--- NOTE | 2021-09-20 16:05 | PC.NURSE ---
Paged Dr. Fernandez, awaiting a call back from him at this time for ER
--- NOTE | 2021-09-20 16:36 | PC.NURSE ---
is speaking with Dr Fernandez
--- NOTE | 2021-09-20 16:39 | PC.NURSE ---
Spoke with Nelsy in care management regarding admission
--- NOTE | 2021-09-20 18:36 | PC.NURSE ---
Called report to Jordon, nursing home admissions director with [facility].
--- NOTE | 2021-09-20 19:20 | PC.NURSE ---
PT ARRIVED TO FLOOR VIA W/C @ 192
[2021-09-21] VITALS (7 sets, daily range): BP systolic 100–123; BP diastolic 59–71; PULSE 95–108; RESP 16–18; TEMP 36.7–37.3; O2SAT 96–100; BMI 35.1
--- NOTE | 2021-09-21 05:35 | PC.NURSE ---
Addendum entered by Radha Ramirez RN 09/21/21 06:57: Pt remained afebrile t/o shift 99.2- 98.6 Original Note: Pt has rested intermittently t/o shift. Pt is A/O x3. Pt reports no pain throughout shift. Pt remains on RA with O2 >90%. HR has been 101-116. Pt has received antibiotics per APR. Pt can use BSC to void independently.
[2021-09-21 05:36] LABS: POC Glucose,Bedside 132 (70-110)
[2021-09-21 06:28] LABS: Basophils % 2.1 % (0.1-2.0); Eosinophils % 2.9 % (0.1-12.0); Hematocrit 24.9 % (37.0-47.0); Lymphocytes # 0.3 K/mm3 (0.7-4.5); Lymphocytes % 57.3 % (10-50); Mean Corpuscular Hemoglobin 33.7 pg (27.0-31.2); Mean Corpuscular Volume 105.4 fl (81-99); Monocytes # 0.1 K/mm3 (0.1-1.0); Neutrophils # 0.1 K/mm3 (1.8-7.8); Neutrophils % 19.7 % (37.0-80.0); Platelet Count 144 K/mm3 (142-424); Red Blood Count 2.36 M/mm3 (4.20-5.40)
[2021-09-21 06:31] LABS: Chloride 104 mmol/L (98-107); Potassium 3.8 mmoL/L (3.5-5.1); Sodium 136 mmol/L (136-145)
[2021-09-21 06:33] LABS: Alanine Aminotransferase 55 U/L (12-78); Anion Gap 7.8 mEq/L (5-15); Aspartate Amino Transferase 50 U/L (14-36); Blood Urea Nitrogen 11 mg/dl (7-17); Carbon Dioxide 28 mmol/L (22.0-30.0); Creatinine Clearance Estimated 129 mL/min (50-200); Estimated Glomerular Filt Rate 87 ml/min (>60); GFR (African American) 105 ML/MIN (>60); Lactic Acid 1.3 mmol/L (0.7-2.1)
[2021-09-21 06:34] LABS: Albumin Level 3.2 g/dl (3.5-5.0); Albumin/Globulin Ratio 1.3 (1.1-1.8); Alkaline Phosphatase 71 U/L (38-126); Calcium 8.6 mg/dl (8.4-10.2); Globulin 2.4 g/dL (1.3-3.2); Glucose 118 mg/dl (74-100); Magnesium 1.8 mg/dl (1.6-2.3); Phosphorous 4.5 mg/dl (2.5-4.5); Total Protein,Serum 5.6 g/dl (6.3-8.2)
[2021-09-21 06:36] LABS: Bilirubin,Total < 0.1 mg/dl (0.2-1.3)
[2021-09-21 06:38] LABS: White Blood Count 0.6 K/mm3 (4.8-10.8)
[2021-09-21 06:39] LABS: MANUAL DIFFERENTIAL MANUAL DIFFERENTIAL (MANUAL DIFF)
[2021-09-21 06:53] LABS: Anisocytosis 1+; Hypochromasia 1+; Lymphocytes % 68 % (10-50); Macrocytosis 1+; Monocytes % 12 % (2-9); Neutrophils % 12 % (42-76); Platelet Estimate Normal; Total Cells Counted 25
--- NOTE | 2021-09-21 07:51 | P.CONPHA_ITS ---
[facility] VTE Monitoring - Patient Demographics Admission date: 09/21/21 Report Date: 09/21/21 Time: 07:51 Allergies/Adverse Reactions: Patient Allergies epinephrine Allergy (Severe, Verified 09/20/21 12:28) Chest Pain shellfish derived Allergy (Severe, Verified 09/20/21 12:28) Unknown allergy reaction shrimp Allergy (Severe, Verified 09/20/21 12:28) Unknown allergy reaction vancomycin Allergy (Severe, Verified 09/20/21 13:47) Rash Height: 1.6 m Weight: 89.981 kg Patient Problems: Current Active Problems Neutropenic fever (Acute) - VTE Risk Labs: VTE Related Lab Results Hgb 8.0 g/dL (12.2-16.2) L 09/21/21 06:08 Hct 24.9 % (37.0-47.0) L 09/21/21 06:08 Plt Count 144 K/mm3 (142-424) 09/21/21 06:08 BUN 11 mg/dl (7-17) 09/21/21 06:08 Creatinine 0.70 mg/dl (0.52-1.04) 09/21/21 06:08 Estimated Creat Clear 129 mL/min (50-200) 09/21/21 06:08 VTE Score: 7 VTE Risk Level: Very Low Risk Clinical Trial Participant: No - Prophylaxis VTE Prophylaxis Ordered?: Yes Types of VTE Prophylaxis: TEDS Knee High
--- NOTE | 2021-09-21 08:51 | HMH.HP ---
*Admission Date: 09/21/21 *Chief complaint: Fever and cough *History of present illness: 56-year-old female patient presented to the [facility] emergency department with reports of ongoing fever of 102 degrees or greater. She also reports a productive cough, and increased shortness of breath. 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 She has no home O2 and was in the [facility] yesterday received cefdinir for bronchitis. Patient is established with [facility] oncology department and case was discussed with the ED doc they accepted patient for transfer, but due to COVID diagnosis she will be boarded at [facility] until bed availability. They did recommend every 8 cefepime, acyclovir IV, fluconazole IV and all have been ordered. 09/20/21 chest CTA: FINDINGS: Motion obscures some of the lower lobe branches. There is no evidence of pulmonary embolism. There is no evidence of thoracic aortic aneurysm or dissection. There is no evidence of mediastinal or hilar mass or adenopathy. There is mild diffuse esophageal wall thickening, favor inflammatory. There is no evidence of pulmonary mass or suspicious nodule. There is mild bibasilar atelectasis. Limited images of the upper abdomen are unremarkable. IMPRESSION: 1. No evidence of pulmonary embolism. 2. Diffuse esophageal wall thickening, favor inflammatory. 3. Mild bibasilar atelectasis. Reviewed, Interpreted and Dictated by Rojas Chase III, MD [facility] History I have reviewed the patient's past medical history: Yes Medical History: Reports:: Cancer, Diabetes Mellitus Type 2, Hyperlipidemia, Hypertension, MRSA Denies:: Diabetes Mellitus Type 1 *Have you ever received a pneumonia vaccine?: No *Have you received a flu vaccine this season?: Yes Laterality Cases: Bilateral: Tonsillectomy Other Surgeries: Yes: Cholecystectomy Amputation: No Fractures: No - *Social History Smoking Status: Current every day smoker Alcohol Intake: never Alcohol Intake Frequency:: 0-2 drinks per day Substance Use Type: denies use *Occupational Status:: employed Housing: house Household Members: spouse, children *Travel in the last 8 weeks: None Family Hx:: Cancer, Diabetes, Stroke Review of Systems - Review of Systems Review of systems:: pertinent systems reviewed and negative unless documented below - Constitutional Reports fatigue, Reports fever(s), Reports weakness - Eyes Denies blurry vision, Denies double vision - ENT Denies dizziness, Denies sinus pressure - *Cardiovascular Reports shortness of breath, Reports shortness of breath with activity, Denies chest pain, Denies chest pain at rest - *Respiratory Reports change in phlegm color, Reports chest congestion, Reports cough, Reports shortness of breath, Reports shortness of breath with activity - *Gastrointestinal Denies abdominal pain, Denies constipation, Denies nausea - *Musculoskeletal Denies back pain - Integumentary/Breasts Denies change in skin color, Denies skin ulcer - *Neurologic Denies confusion, Denies dizziness - Psychiatric Denies anxiety, Denies change in appetite, Denies confusion - Endocrine Denies cold intolerance, Denies increased urination - Hematologic/Lymphatic Denies easy bleeding, Denies easy bruising - Allergic/Immunologic Denies GI upset with certain foods, Denies tongue swelling Meds Home Medications Medication Instructions Recorded Confirmed Type Acyclovir 800 mg PO DAILY 08/12/21 09/20/21 History Albuterol Sulfate [Albuterol 2 puff IH Q6HP PRN 08/12/21 09/21/21 History Sulfate Hfa] Amlodipine Besylate 10 mg PO DAILY 08/12/21 09/20/21 History Ascorbic Acid [Vitamin C] 500 mg PO DAILY 08/12/21 09/20/21 History Calcium Carbonate/Vitamin D3 1 each PO DAILY 08/12/21 09/20/21 History [Calcium 600-Vit D3 200 Tab
--- NOTE | 2021-09-21 09:25 | HMH.PULMCON ---
*Admission Date: 09/21/21 *Reason for consult:: COVID-19 pneumonia, febrile neutropenia *History of present illness: Ms. Evans is a 56-year-old female with a history of Burkitt's lymphoma currently on chemotherapy scented to the hospital with a fever of 102 degrees awaiting to be transferred to [facility] also noted to be positive for COVID-19 pneumonia and pulmonary was called for further management. Patient complains of worsening shortness of breath along with cough and productive phlegm for the last 7 days. Also admits worsening wheezing. Shortness of breath worsens with exertion relieved by taking rest. She also carries a history of asthma previous using Advair inhaler, however currently seeing only albuterol on as-needed basis. Denies any known sick contacts. Denies any chest pain. [facility] History Medical History: Reports:: Cancer, Diabetes Mellitus Type 2, Hyperlipidemia, Hypertension, MRSA Denies:: Diabetes Mellitus Type 1 *Have you ever received a pneumonia vaccine?: No *Have you received a flu vaccine this season?: Yes Laterality Cases: Bilateral: Tonsillectomy Other Surgeries: Yes: Cholecystectomy Amputation: No Fractures: No - *Social History Last grade of school completed: Some college Smoking Status: Never smoker Alcohol Intake: never Alcohol Intake Frequency:: other Substance Use Type: other *Occupational Status:: employed Housing: house Household Members: spouse, children *Travel in the last 8 weeks: None Family Hx:: Cancer, Diabetes, Stroke ROS - Cons Reports body ache(s), Reports chills, Reports fatigue, Reports fever(s) - Eyes Reports blurry vision, Denies change in vision - ENT Denies bleeding gums, Denies change in voice - Card Reports shortness of breath, Reports shortness of breath with activity, Denies leg swelling - Resp Respiratory: Reports change in phlegm color, Reports chest congestion, Reports cough, Reports excessive phlegm production, Reports wheezing - GI Gastrointestingal: Denies: abdominal pain, change in bowel habits - [place] Musculoskeletal: Denies back pain, Reports muscle cramps, Reports muscle weakness - Psych Denies thoughts of hurting/killing others, Denies thoughts of hurting/killing yourself Meds Home Medications Medication Instructions Recorded Confirmed Type Acyclovir 800 mg PO DAILY 08/12/21 09/20/21 History Albuterol Sulfate [Albuterol 8.5 gm IH DAILY PRN 08/12/21 09/20/21 History Sulfate Hfa] Amlodipine Besylate 10 mg PO DAILY 08/12/21 09/20/21 History Ascorbic Acid [Vitamin C] 500 mg PO DAILY 08/12/21 09/20/21 History Calcium Carbonate/Vitamin D3 1 each PO DAILY 08/12/21 09/20/21 History [Calcium 600-Vit D3 200 Tablet] Cetirizine HCl 10 mg PO HS 08/12/21 09/20/21 History Cholestyramine/Aspartame 4 gm PO DAILY 08/12/21 09/20/21 History [Cholestyramine Light Packet] Cyanocobalamin (Vitamin B-12) 1,000 mcg IM MONTHLY 08/12/21 09/20/21 History [Cyanocobalamin 1,000mcg/mL Vial] Cyclobenzaprine HCl 5 mg PO TIDP PRN 08/12/21 09/20/21 History [Cyclobenzaprine 5mg Tab*] Dexlansoprazole [Dexlansoprazole 60 mg PO DAILY 08/12/21 09/20/[address]] Duloxetine HCl 40 mg PO DAILY 08/12/21 09/20/21 History Fluticasone Propionate [Flonase 1 spray NS DAILY 08/12/21 09/20/21 History Allergy Relief NS] LORazepam [Lorazepam 0.5mg Tablet] 0.5 mg PO DAILY 08/12/21 09/20/21 History Metformin HCl [Metformin HCl ER] 500 mg PO DAILY 08/12/21 09/20/21 History Montelukast Sodium 10 mg PO DAILY 08/12/21 09/20/21 History Multivit-Min/Iron/Folic/Lutein 1 each PO DAILY 08/12/21 09/20/21 History [Multivitamin Women 50 Plus Tab] Nitroglycerin [Nitrostat 0.4mg SL 0.4 mg SL DAILY 08/12/21 09/20/21 History Tablet] [place]-3 Fatty Acids/Fish Oil 1 each PO DAILY 08/12/21 09/20/21 History [[place] 3 1,000 mg Softgel] Pioglitazone HCl [Actos 30mg 30 mg PO DAILY 08/12/21 09/20/21 History tablet] Pravastatin Sodium [Pravachol 40mg 40 mg PO HS 08/12/2109/05
--- NOTE | 2021-09-21 11:05 | PC.NURSE ---
noted patient has pulmonology consult. noted stated cardiology. spoke with nelda marin who stated he wanted the pulmonology consult. not cardiology.
--- NOTE | 2021-09-21 11:38 | HMH.PHAINT ---
MEDICATION RECONCILIATION COMPLETED ON PATIENT USING EXTERNAL FILL HISTORY FROM PHARMACY AND NAHID REPORT. -LALA BAUERD
--- NOTE | 2021-09-21 16:57 | HMH.DCSUM ---
General - General Admission date:: 09/20/21 Discharge date: 09/21/21 HPI HPI: 56-year-old female patient presented to the [facility] emergency department with reports of ongoing fever of 102 degrees or greater. She also reports a productive cough, and increased shortness of breath. 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 She has no home O2 and was in the [facility] yesterday received cefdinir for bronchitis. Patient is established with [facility] oncology department and case was discussed with the ED doc they accepted patient for transfer, but due to COVID diagnosis she will be boarded at [facility] until bed availability. They did recommend every 8 cefepime, acyclovir IV, fluconazole IV and all have been ordered. Hospital Course Hospital Course: 56-year-old female patient presented to the [facility] emergency department with reports of ongoing fever of 102 degrees or greater. She also reports a productive cough, and increased shortness of breath. She does have a medical history of Burkitt's lymphoma and currently on chemotherapy, 09/20/21 chest CTA: FINDINGS: Motion obscures some of the lower lobe branches. There is no evidence of pulmonary embolism. There is no evidence of thoracic aortic aneurysm or dissection. There is no evidence of mediastinal or hilar mass or adenopathy. There is mild diffuse esophageal wall thickening, favor inflammatory. There is no evidence of pulmonary mass or suspicious nodule. There is mild bibasilar atelectasis. Limited images of the upper abdomen are unremarkable. IMPRESSION: 1. No evidence of pulmonary embolism. 2. Diffuse esophageal wall thickening, favor inflammatory. 3. Mild bibasilar atelectasis. Reviewed, Interpreted and Dictated by Rojas Chase III, MD Pulmonary has seen and recommends: Assessment and Plan for all problems:: #COVID-19 pneumonia: #Febrile neutropenia: 56-year-old Burkitt's lymphoma on chemotherapy presented febrile neutropenia and found to be positive for COVID-19 pneumonia. Completed COVID-19 vaccine 2 doses with most recent booster around March 2021. Complains of worsening shortness with along with cough and productive phlegm for the last several days getting worse. Denies any known sick contacts. Prior history of asthma currently only using albuterol on as-needed basis. CT personally reviewed, no evidence of pulmonary embolism. No evidence of dense consolidation/groundglass opacities. Complains of mild pain and soreness, denies any odynophagia. Labs personally reviewed, observe neutrophil count at 100. Platelet count normal at 144 On room air. Currently receiving Cefepime, acyclovir and IV fluconazole. Awaiting blood cultures. Plan: -Given patient respiratory status at baseline and not needing any oxygen will not initiate any active treatment for COVID-19 pneumonia at this point of time. We will see patient in remdesivir x3 days to prevent the progression to severe COVID-19 and given her immunocompromise status. Will initiate Advair twice daily scheduled. -Monitor clinically -Recommend chemical DVT prophylaxis -Follow with blood cultures and sputum cultures 56-year-old female patient sitting up in bed resting quietly with eyes open, she denies any respiratory distress during the night. She reports her pain is a tolerable level and was currently waiting open bed at [facility] oncology for transfer. During her stay here she has received cefepime, acyclovir and fluconazole IV per [facility] recommendations. She has been seen by her poultry packer for COVID-19 positive and has received remdesivir IV and Advair inhaler as well as Lovenox for DVT prophylaxis PLAN: Objective Vital signs: Temp Pulse Resp BP Pulse Ox 99.1 F 106 H 17 105/5
--- NOTE | 2021-09-21 17:00 | PC.NURSE ---
PT STILL WAITING FOR BED, SPOKE WITH [facility] AND THEY CURRENTLY HAVE NO BEDS AVAILABLE AT THIS TIME. ALERT X4. PT HAS HAD ONE EPISODE OF DIARRHEA. LUNGS CLEAR/DIMINISHED, ON RA TOLERATING WELL. NO COMPLAINTS OF PAIN N/V. SPUTUM SPECIMEN OBTAINED AND SENT TO LAB. CB AND PERSONAL ITEMS W/I REACH. NO QUESTIONS OR CONCERNS AT THIS TIME.
[2021-09-22] VITALS (7 sets, daily range): BP systolic 116–142; BP diastolic 62–78; PULSE 88–103; RESP 16–18; TEMP 36.7–37.1; O2SAT 94–100; BMI 35.3
--- NOTE | 2021-09-22 04:41 | PC.NURSE ---
Pt has not voiced any complaints to staff. Pt lung sounds diminished t/o. Pt tolerating RA well with sats >90%. Call light within reach.
[2021-09-22 07:26] LABS: Basophils % 2.3 % (0.1-2.0); Eosinophils % 1.7 % (0.1-12.0); Hematocrit 24.5 % (37.0-47.0); Hemoglobin 8.1 g/dL (12.2-16.2); Lymphocytes # 0.5 K/mm3 (0.7-4.5); Lymphocytes % 29.5 % (10-50); Mean Corpuscular HGB Conc 33.1 g/dL (31.8-35.4); Mean Corpuscular Hemoglobin 33.6 pg (27.0-31.2); Mean Corpuscular Volume 101.4 fl (81-99); Mean Platelet Volume 9.1 fl (7.4-10.4); Monocytes # 0.3 K/mm3 (0.1-1.0); Neutrophils # 0.9 K/mm3 (1.8-7.8); Neutrophils % 51.5 % (37.0-80.0); Platelet Count 191 K/mm3 (142-424); Red Blood Count 2.42 M/mm3 (4.20-5.40); Red Cell Distribution Width 17.1 % (11.5-17.5); White Blood Count 1.7 K/mm3 (4.8-10.8)
[2021-09-22 07:36] LABS: Chloride 108 mmol/L (98-107); Sodium 141 mmol/L (136-145)
[2021-09-22 07:37] LABS: Potassium 3.9 mmoL/L (3.5-5.1)
[2021-09-22 07:39] LABS: Alanine Aminotransferase 53 U/L (12-78); Albumin Level 3.3 g/dl (3.5-5.0); Albumin/Globulin Ratio 1.4 (1.1-1.8); Alkaline Phosphatase 73 U/L (38-126); Anion Gap 9.9 mEq/L (5-15); Aspartate Amino Transferase 48 U/L (14-36); Blood Urea Nitrogen 9 mg/dl (7-17); Carbon Dioxide 27 mmol/L (22.0-30.0); Creatinine Clearance Estimated 151 mL/min (50-200); Estimated Glomerular Filt Rate 104 ml/min (>60); GFR (African American) 126 ML/MIN (>60); Globulin 2.4 g/dL (1.3-3.2); Total Protein,Serum 5.7 g/dl (6.3-8.2)
[2021-09-22 07:40] LABS: Glucose 135 mg/dl (74-100)
[2021-09-22 07:46] LABS: Bilirubin,Total < 0.1 mg/dl (0.2-1.3)
--- NOTE | 2021-09-22 09:23 | HMH.ACPN2 ---
Internal Medicine - PN: Subj *Date: 09/22/21 *Time: 09:23 Interval history: 56-year-old female patient sitting up in bed resting quietly with eyes open, she denies any shortness of breath during night. Respirations are easy/even, room air oxygenation 94%. Still awaiting bed at [facility] Exam Vital signs and Labs for Last 24 Hours: Temp Pulse Resp BP Pulse Ox 98.7 F 88 16 116/62 98 09/22/21 08:00 09/22/21 08:00 09/22/21 08:00 09/22/21 08:00 09/22/21 08:00 Laboratory Results - last 24 hr 09/22/21 07:12: Sodium 141, Potassium 3.9, Chloride 108 H, Carbon Dioxide 27, Anion Gap 9.9, BUN 9, Creatinine 0.60, Estimated Creat Clear 151, Estimated GFR 104, Est GFR ( Amer) 126, Glucose 135 H, Calcium 8.0 L, Total Bilirubin < 0.1 L, AST 48 H, ALT 53, Alkaline Phosphatase 73, Total Protein 5.7 L, Albumin 3.3 L, Globulin 2.4, Albumin/Globulin Ratio 1.4 09/22/21 07:12: WBC 1.7 L* D, RBC 2.42 L, Hgb 8.1 L, Hct 24.5 L, MCV 101.4 H, MCH 33.6 H, MCHC 33.1, RDW 17.1, Plt Count 191 D, MPV 9.1, Neut % (Auto) 51.5, Lymph % (Auto) 29.5, [place] % (Auto) 15.0 H, Eos % (Auto) 1.7, Baso % (Auto) 2.3 H, Neut # (Auto) 0.9 L*, Lymph # (Auto) 0.5 L, [place] # (Auto) 0.3, Eos # (Auto) 0.0, Baso # (Auto) 0.0 I & O for Last 24 hours: Intake & Output 09/19/21 09/20/21 09/21/21 09/22/21 23:59 23:59 23:59 23:59 Intake Total 1540 / 1540 940 / 940 Balance 1540 / 1540 940 / 940 Weight 198 lb 6 oz 198 lb 5.986 oz 199 lb 4 oz Microbiology Reports for the Last 24 Hours: Microbiology 09/21/21 14:00 Sputum - Expectorated Sputum Gram Stain - Final 09/21/21 14:00 Sputum - Expectorated Sputum Sputum Culture - Preliminary - Constitutional no acute distress - *Routine HEENT Exam Head: Present: normocephalic Eye: Present: EOMI ENT: Present: mucous membranes moist - *Routine Neck Exam Present: trachea midline. Absent: tracheal deviation - *Routine Respiratory Exam Present: decreased breath sounds. Absent: accessory muscle use - *Routine Cardiovascular Exam Present: RRR - *Routine Abdominal Exam Present: soft, normoactive bowel sounds. Absent: tenderness, firm - *Routine Extremities Exam Present: full ROM, pulses intact. Absent: cyanosis, clubbing - *Routine Skin Exam Present: intact, dry. Absent: cyanosis, erythema - *Routine Neurological Exam Present: alert, oriented X3. Absent: pronator drift - Routine Psychiatric Exam Present: normal affect, normal thought process. Absent: tactile hallucinations Assessment and Plan (1) COVID-19 Status: Acute Category: Medical Code(s): U07.1 - COVID-19 (2) Neutropenic fever Status: Acute Category: Medical Code(s): D70.9 - Neutropenia, unspecified; R50.81 - Fever presenting with conditions classified elsewhere - Assessment and plan all Dx Assessment and Plan for all problems:: Rounded with Dr. Howell, all orders per Dr. Howell: 1. Awaiting bed at [facility] 2. Continue current medical regimen 3. Pulmonary following
--- NOTE | 2021-09-22 10:25 | HMH.PULMPN ---
Internal Medicine - PN: Subj *Date: 09/22/21 *Time: 10:25 Interval history: No acute respiratory events overnight. Patient admits continued improvement in her respiratory status Exam - Constitutional Constitutional:: Present: no acute distress, comfortable - HENMT Exam HENMT: Present: normocephalic, atraumatic - Eye Exam Eyes:: Present: normal appearance both eyes and related structures, eyelids normal - Neck Exam Neck:: Present: normal visual inspection, thyroid normal - Respiratory Exam Respiratory:: Present: able to speak in complete sentences, no respiratory distress. Absent: crackles, wheezing - Cardiovascular Exam Cardiac:: Present: S1, S2. Absent: chest pain - GI Exam GI:: Present: soft, no hepatosplenomegaly - Skin Exam Skin: Present: warm, dry - Neurological Exam Neurological: Present: alert, awake, normal cognition - Extremities Exam Extremities: Present: no cyanosis, no clubbing, no edema Assessment and Plan (1) COVID-19 Status: Acute Category: Medical Code(s): U07.1 - COVID-19 (2) Neutropenic fever Status: Acute Category: Medical Code(s): D70.9 - Neutropenia, unspecified; R50.81 - Fever presenting with conditions classified elsewhere - Assessment and plan all Dx Assessment and Plan for all problems:: #COVID-19 pneumonia: 56-year-old Burkitt's lymphoma on chemotherapy presented febrile neutropenia and found to be positive for COVID-19 pneumonia. Completed COVID-19 vaccine 2 doses with most recent booster around March 2021. Complains of worsening shortness with along with cough and productive phlegm for the last several days getting worse. Denies any known sick contacts. Prior history of asthma currently only using albuterol on as-needed basis. CT on admission personally reviewed, no evidence of pulmonary embolism. No evidence of dense consolidation/groundglass opacities. Complains of mild pain and soreness, denies any odynophagia. Labs on admission personally reviewed, observe neutrophil count at 100. Platelet count normal at 144 On room air. Currently receiving Cefepime, acyclovir and IV fluconazole. Awaiting blood cultures. Interval update: No acute respiratory events overnight. Patient continued on room air. Auscultation improved with no wheezing today. Patient was initiated on Advair. Pulm sputum culture gram-positive cocci Plan: -Given patient respiratory status at baseline and not needing any oxygen will not initiate any active treatment for COVID-19 pneumonia at this point of time. Continue remdesivir x3 days to prevent the progression to severe COVID-19 and given her immunocompromise status. - Continue Advair twice daily scheduled. -Monitor clinically -Recommend chemical DVT prophylaxis #Thank you for involving pulmonary in this patient care. We will continue to follow.
--- NOTE | 2021-09-22 10:27 | PC.NURSE ---
Still no bed at at this time. Will update pcp.
[2021-09-22 12:23] LABS: POC Glucose,Bedside 133 (70-110)
--- NOTE | 2021-09-22 14:46 | PC.NURSE ---
rounded on patient. no concerns noted. updated on [facility] and conversations with them. patient was slightly teary eyed as she spoke about treatment through out her cancer diagnosis. no needs voiced. offered protein shakes if appetite wasn't good. encouraged her to ring out with any needs or concerns.
[2021-09-22 16:38] LABS: POC Glucose,Bedside 121 (70-110)
--- NOTE | 2021-09-22 20:00 | PC.NURSE ---
Still awaiting possible transfer to [facility]. PICC dsg changed per sterile technique to DENISE. Small red abrasion noted under PICC dsg, cleansed with alcohol swab as well and applied new dsg. CB in reach and VSS. No changes since prior assessment.
[2021-09-23 04:00] VITALS: BP 149/78; PULSE 98; RESP 18; TEMP 36.6; O2SAT 99
--- NOTE | 2021-09-23 04:00 | PC.NURSE ---
Addendum entered by Jessica Briggs RN 09/23/21 06:42: pt blood sugars remain <150, pt states takes meds at home for anxiety but has not had since admission, was unable to draw blood from picc line this am, picc line flushes without difficulty but unable to pull labs from picc line. Original Note: pt rested well through the night, pt had some difficulty falling asleep, picc line patent to left upper arm and flushed without difficulty, pt a&o x4; lung sounds diminished with o2 sats 99 on room air, HR 98-99; no edema noted, no other issues noted at this time.
[2021-09-23 04:12] VITALS: BMI 35.3
[2021-09-23 06:41] LABS: Basophils # 0.1 K/mm3 (0-0.2); Basophils % 1.6 % (0.1-2.0); Eosinophils # 0.1 K/mm3 (0.0-0.4); Hematocrit 26.1 % (37.0-47.0); Hemoglobin 8.3 g/dL (12.2-16.2); Lymphocytes # 0.9 K/mm3 (0.7-4.5); Lymphocytes % 17.6 % (10-50); Mean Corpuscular HGB Conc 31.7 g/dL (31.8-35.4); Mean Corpuscular Hemoglobin 33.1 pg (27.0-31.2); Mean Corpuscular Volume 104.3 fl (81-99); Mean Platelet Volume 8.5 fl (7.4-10.4); Monocytes # 0.6 K/mm3 (0.1-1.0); Monocytes % 11.9 % (1.7-9.3); Neutrophils # 3.4 K/mm3 (1.8-7.8); Neutrophils % 67.9 % (37.0-80.0); Platelet Count 232 K/mm3 (142-424); Red Cell Distribution Width 17.2 % (11.5-17.5)
[2021-09-23 06:43] LABS: Potassium 3.9 mmoL/L (3.5-5.1); Sodium 139 mmol/L (136-145)
[2021-09-23 06:44] LABS: Chloride 109 mmol/L (98-107)
[2021-09-23 06:45] LABS: Anion Gap 8.9 mEq/L (5-15); Carbon Dioxide 25 mmol/L (22.0-30.0)
[2021-09-23 06:46] LABS: Alkaline Phosphatase 73 U/L (38-126)
[2021-09-23 06:47] LABS: Alanine Aminotransferase 47 U/L (12-78); Albumin Level 3.4 g/dl (3.5-5.0); Albumin/Globulin Ratio 1.5 (1.1-1.8); Aspartate Amino Transferase 52 U/L (14-36); Blood Urea Nitrogen 7 mg/dl (7-17); Creatinine Clearance Estimated 151 mL/min (50-200); Estimated Glomerular Filt Rate 104 ml/min (>60); GFR (African American) 126 ML/MIN (>60); Globulin 2.3 g/dL (1.3-3.2); Glucose 141 mg/dl (74-100); Total Protein,Serum 5.7 g/dl (6.3-8.2)
[2021-09-23 06:48] LABS: Bilirubin,Total < 0.1 mg/dl (0.2-1.3)
[2021-09-23 06:53] LABS: POC Glucose,Bedside 121 (70-110)
[2021-09-23 08:00] VITALS: BP 102/71; PULSE 78; RESP 18; TEMP 36.7; O2SAT 98
--- NOTE | 2021-09-23 09:58 | HMH.PULMPN ---
Internal Medicine - PN: Subj *Date: 09/23/21 *Time: 09:58 Interval history: No acute respiratory events overnight. Patient admits continued improvement in her respiratory symptoms. Continues to admit cough and productive phlegm. Improving from prior. Exam - Constitutional Constitutional:: Present: no acute distress, comfortable - HENMT Exam HENMT: Present: normocephalic, atraumatic - Eye Exam Eyes:: Present: normal appearance both eyes and related structures, eyelids normal - Neck Exam Neck:: Present: normal visual inspection, thyroid normal - Respiratory Exam Respiratory:: Present: able to speak in complete sentences. Absent: crackles, wheezing - Cardiovascular Exam Cardiac:: Present: S1, S2. Absent: chest pain - GI Exam GI:: Present: soft, no hepatosplenomegaly - Skin Exam Skin: Present: warm, no rash - Neurological Exam Neurological: Present: alert, awake - Extremities Exam Extremities: Present: no cyanosis, no clubbing, no edema Assessment and Plan (1) COVID-19 Status: Acute Category: Medical Code(s): U07.1 - COVID-19 (2) Neutropenic fever Status: Acute Category: Medical Code(s): D70.9 - Neutropenia, unspecified; R50.81 - Fever presenting with conditions classified elsewhere - Assessment and plan all Dx Assessment and Plan for all problems:: #COVID-19 pneumonia: #Asthma : 56-year-old Burkitt's lymphoma on chemotherapy presented febrile neutropenia and found to be positive for COVID-19 pneumonia. Completed COVID-19 vaccine 2 doses with most recent booster around March 2021. Complains of worsening shortness with along with cough and productive phlegm for the last several days getting worse. Denies any known sick contacts. Prior history of asthma currently only using albuterol on as-needed basis. CT on admission personally reviewed, no evidence of pulmonary embolism. No evidence of dense consolidation/groundglass opacities. Complains of mild pain and soreness, denies any odynophagia. Labs on admission personally reviewed, observe neutrophil count at 100. Platelet count normal at 144 On room air. Currently receiving Cefepime, acyclovir and IV fluconazole. Awaiting blood cultures. Interval update: No acute respiratory events overnight. Continues to remain on room air. Continue to use Advair. White count improving. Completed 3-day course of prophylactic remdesivir. Plan: -Completed 3-day course of prophylactic remdesivir. -Change cefepime to levofloxacin to complete a total of 5-day course. -Continue Advair 100, twice daily scheduled upon discharge. -Monitor clinically -Recommend chemical DVT prophylaxis while inpatient #Thank you for involving pulmonary in this patient care. We will follow the patient in pulmonary clinic in 6 to 8 weeks with a full PFT testing.
--- NOTE | 2021-09-23 10:53 | HMH.ACPN ---
Internal Medicine - PN: Subj *Date: 09/23/21 *Time: 10:53 Exam Vital signs and Labs for Last 24 Hours: Temp Pulse Resp BP Pulse Ox 98.0 F 78 18 102/71 L 98 09/23/21 08:00 09/23/21 08:00 09/23/21 08:00 09/23/21 08:00 09/23/21 08:00 Laboratory Results - last 24 hr 09/22/21 12:07: POC Glucose 133 H 09/22/21 15:44: POC Glucose 121 H 09/22/21 21:09: POC Glucose 121 H 09/23/21 06:30: Sodium 139, Potassium 3.9, Chloride 109 H, Carbon Dioxide 25, Anion Gap 8.9, BUN 7, Creatinine 0.60, Estimated Creat Clear 151, Estimated GFR 104, Est GFR ( Amer) 126, Glucose 141 H, Calcium 8.0 L, Total Bilirubin < 0.1 L, AST 52 H, ALT 47, Alkaline Phosphatase 73, Total Protein 5.7 L, Albumin 3.4 L, Globulin 2.3, Albumin/Globulin Ratio 1.5 09/23/21 06:30: WBC 5.0 D, RBC 2.50 L, Hgb 8.3 L, Hct 26.1 L, MCV 104.3 H, MCH 33.1 H, MCHC 31.7 L, RDW 17.2, Plt Count 232, MPV 8.5, Neut % (Auto) 67.9, Lymph % (Auto) 17.6, [place] % (Auto) 11.9 H, Eos % (Auto) 1.0, Baso % (Auto) 1.6, Neut # (Auto) 3.4, Lymph # (Auto) 0.9, [place] # (Auto) 0.6, Eos # (Auto) 0.1, Baso # (Auto) 0.1 I & O for Last 24 hours: Intake & Output 09/20/21 09/21/21 09/22/21 09/23/21 23:59 23:59 23:59 23:59 Intake Total 1540 / 1540 2089 700 / 700 Output Total Balance 1540 / 1540 2089 699 / 699 Weight 89.981 kg 89.981 kg 90.37 kg 90.52 kg Microbiology Reports for the Last 24 Hours: Microbiology 09/21/21 14:00 Sputum - Expectorated Sputum Gram Stain - Final 09/21/21 14:00 Sputum - Expectorated Sputum Sputum Culture - Preliminary 09/20/21 13:10 Blood Blood Culture - Preliminary NO GROWTH AFTER 48 HOURS 09/20/21 13:10 Blood Blood Culture - Preliminary NO GROWTH AFTER 48 HOURS Assessment and Plan (1) COVID-19 Status: Acute Category: Medical Code(s): U07.1 - COVID-19 (2) Neutropenic fever Status: Acute Category: Medical Code(s): D70.9 - Neutropenia, unspecified; R50.81 - Fever presenting with conditions classified elsewhere The patient's infection will respond to the chosen ABx?: Yes Is the patient receiving the right drug, dose, and route?: Yes Could a more targeted ABx be ordered?: No (BLD CX (-)X2, SPUTUM PENDING)
--- NOTE | 2021-09-23 11:35 | PC.NURSE ---
Pt is getting IV abx before she can leave. PT will contact ride after IV is finished.
--- NOTE | 2021-09-23 11:36 | PC.NURSE ---
Read MD note she is changing acyclovir to diflucan, and cefepime to levaquin.
[2021-09-23 12:00] VITALS: BP 130/82; PULSE 104; RESP 18; TEMP 37.3; O2SAT 100
--- NOTE | 2021-09-23 12:11 | PC.NURSE ---
rounded on patient. requested protein shake with her lunch and notified dietary. no complaints or concerns noted. encouraged her to ring out as needed.
[2021-09-23 19:59] LABS: POC Glucose,Bedside 137 (70-110)
[2021-09-23 19:59] LABS: POC Glucose,Bedside 148 (70-110)
--- NOTE | 2021-09-26 14:24 | CARE MANAGER ---
Contacted patient's daughter related to hospital discharge. She states patient has medications and is aware of follow up appointments. That she is doing better and denies questions or concerns. AVRIL Mcgee
== END 2021-09-23 13:35 | disposition home or self-care (01) | DRG 177 ==
LOC: ER 13:00 → 2ND 17:19
PROVIDERS: Internal Medicine Pulmonary Disease; Nurse Practitioner Family; Admitting Provider Emergency Medicine; Emergency Provider Emergency Medicine; PCP Nurse Practitioner; Visit Provider Emergency Medicine
DX: U07.1 COVID-19 (principal); J12.82 Pneumonia due to coronavirus disease 2019; C83.70 Burkitt lymphoma, unspecified site; F17.200 Nicotine dependence, unspecified, uncomplicated; Z79.84 Long term (current) use of oral hypoglycemic drugs; D70.9 Neutropenia, unspecified; R50.81 Fever presenting with conditions classified elsewhere; J45.909 Unspecified asthma, uncomplicated
CPT/HCPCS: 36415; 71275; 80053; 81001; 82962; 83605; 83615; 83735; 84100; 84484; 84550; 85007; 85025; 87040; 87070; 87205; 93005; 94640; 99285; C9803; J1450; J1642; Q9967; U0003; U0005

== ENCOUNTER 2021-09-27 09:40 | Outpatient (CLI) | payer OTHER, SELFPAY ==
[2021-09-27 09:45] VITALS: BMI 35.9
[2021-09-27 10:07] LABS: Basophils # 0.2 K/mm3 (0-0.2); Eosinophils # 0.3 K/mm3 (0.0-0.4); Hematocrit 31.7 % (37.0-47.0); Hemoglobin 9.6 g/dL (12.2-16.2); Lymphocytes # 1.4 K/mm3 (0.7-4.5); Lymphocytes % 12.9 % (10-50); Mean Corpuscular HGB Conc 30.2 g/dL (31.8-35.4); Mean Corpuscular Hemoglobin 33.1 pg (27.0-31.2); Mean Corpuscular Volume 109.5 fl (81-99); Mean Platelet Volume 8.8 fl (7.4-10.4); Monocytes % 9.5 % (1.7-9.3); Neutrophils # 7.7 K/mm3 (1.8-7.8); Neutrophils % 72.5 % (37.0-80.0); Platelet Count 426 K/mm3 (142-424); Red Blood Count 2.89 M/mm3 (4.20-5.40); Red Cell Distribution Width 18.4 % (11.5-17.5); White Blood Count 10.6 K/mm3 (4.8-10.8)
[2021-09-27 10:11] LABS: Chloride 108 mmol/L (98-107); Potassium 4.7 mmoL/L (3.5-5.1); Sodium 141 mmol/L (136-145)
[2021-09-27 10:14] LABS: Alanine Aminotransferase 42 U/L (12-78); Albumin/Globulin Ratio 1.7 (1.1-1.8); Alkaline Phosphatase 106 U/L (38-126); Anion Gap 11.7 mEq/L (5-15); Aspartate Amino Transferase 52 U/L (14-36); Blood Urea Nitrogen 8 mg/dl (7-17); Calcium 8.7 mg/dl (8.4-10.2); Carbon Dioxide 26 mmol/L (22.0-30.0); Creatinine Clearance Estimated 103 mL/min (50-200); Estimated Glomerular Filt Rate 65 ml/min (>60); GFR (African American) 79 ML/MIN (>60); Globulin 2.4 g/dL (1.3-3.2); Glucose 136 mg/dl (74-100); Total Protein,Serum 6.4 g/dl (6.3-8.2)
[2021-09-27 10:18] LABS: Bilirubin,Total < 0.1 mg/dl (0.2-1.3)
== END 2021-09-27 10:24 | disposition home or self-care (01) ==
LOC: INF 09:40
PROVIDERS: PCP Nurse Practitioner
DX: C83.70 Burkitt lymphoma, unspecified site (principal); Z45.2 Encounter for adjustment and management of vascular access device
CPT/HCPCS: 36592; 80053; 85025

== ENCOUNTER 2021-10-04 10:13 | Outpatient (CLI) | payer OTHER, SELFPAY ==
[2021-10-04 10:17] VITALS: BMI 35.9
[2021-10-04 10:55] LABS: Basophils # 0.1 K/mm3 (0-0.2); Eosinophils % 28.8 % (0.1-12.0); Hematocrit 34.9 % (37.0-47.0); Hemoglobin 10.8 g/dL (12.2-16.2); Lymphocytes # 1.1 K/mm3 (0.7-4.5); Mean Corpuscular HGB Conc 30.9 g/dL (31.8-35.4); Mean Corpuscular Hemoglobin 32.5 pg (27.0-31.2); Mean Corpuscular Volume 105.2 fl (81-99); Mean Platelet Volume 7.4 fl (7.4-10.4); Monocytes # 0.7 K/mm3 (0.1-1.0); Monocytes % 6.4 % (1.7-9.3); Neutrophils # 5.5 K/mm3 (1.8-7.8); Neutrophils % 52.8 % (37.0-80.0); Platelet Count 543 K/mm3 (142-424); Red Blood Count 3.32 M/mm3 (4.20-5.40); Red Cell Distribution Width 18.6 % (11.5-17.5); White Blood Count 10.3 K/mm3 (4.8-10.8)
[2021-10-04 11:03] LABS: Alanine Aminotransferase 46 U/L (12-78); Albumin Level 4.1 g/dl (3.5-5.0); Albumin/Globulin Ratio 1.8 (1.1-1.8); Alkaline Phosphatase 93 U/L (38-126); Aspartate Amino Transferase 58 U/L (14-36); Blood Urea Nitrogen 11 mg/dl (7-17); Calcium 10.1 mg/dl (8.4-10.2); Carbon Dioxide 28 mmol/L (22.0-30.0); Chloride 105 mmol/L (98-107); Creatinine Clearance Estimated 92 mL/min (50-200); Estimated Glomerular Filt Rate 58 ml/min (>60); GFR (African American) 70 ML/MIN (>60); Globulin 2.3 g/dL (1.3-3.2); Glucose 131 mg/dl (74-100); Sodium 141 mmol/L (136-145); Total Protein,Serum 6.4 g/dl (6.3-8.2)
[2021-10-04 11:04] LABS: Bilirubin,Total < 0.1 mg/dl (0.2-1.3)
== END 2021-10-04 11:06 | disposition home or self-care (01) ==
LOC: INF 10:14
PROVIDERS: PCP Nurse Practitioner
DX: C83.70 Burkitt lymphoma, unspecified site (principal); Z45.2 Encounter for adjustment and management of vascular access device
CPT/HCPCS: 36592; 80053; 85025

== ENCOUNTER 2021-10-07 10:51 | Outpatient (CLI) | payer SELFPAY ==
[2021-10-07 10:55] VITALS: BMI 35.9
[2021-10-07 11:21] LABS: Basophils # 0.1 K/mm3 (0-0.2); Basophils % 1.1 % (0.1-2.0); Eosinophils # 4.2 K/mm3 (0.0-0.4); Eosinophils % 47.3 % (0.1-12.0); Hematocrit 34.5 % (37.0-47.0); Hemoglobin 10.9 g/dL (12.2-16.2); Lymphocytes # 1.3 K/mm3 (0.7-4.5); Lymphocytes % 15.3 % (10-50); Mean Corpuscular HGB Conc 31.5 g/dL (31.8-35.4); Mean Platelet Volume 7.8 fl (7.4-10.4); Monocytes # 0.6 K/mm3 (0.1-1.0); Monocytes % 6.3 % (1.7-9.3); Neutrophils # 2.6 K/mm3 (1.8-7.8); Platelet Count 457 K/mm3 (142-424); White Blood Count 8.8 K/mm3 (4.8-10.8)
[2021-10-07 11:30] LABS: Chloride 106 mmol/L (98-107); Potassium 4.4 mmoL/L (3.5-5.1); Sodium 142 mmol/L (136-145)
[2021-10-07 11:32] LABS: Blood Urea Nitrogen 13 mg/dl (7-17); Creatinine Clearance Estimated 115 mL/min (50-200); Estimated Glomerular Filt Rate 74 ml/min (>60); GFR (African American) 90 ML/MIN (>60)
[2021-10-07 11:33] LABS: Alanine Aminotransferase 45 U/L (12-78); Albumin Level 4.2 g/dl (3.5-5.0); Albumin/Globulin Ratio 1.8 (1.1-1.8); Alkaline Phosphatase 96 U/L (38-126); Anion Gap 11.4 mEq/L (5-15); Aspartate Amino Transferase 68 U/L (14-36); Bilirubin,Total < 0.1 mg/dl (0.2-1.3); Calcium 9.7 mg/dl (8.4-10.2); Carbon Dioxide 29 mmol/L (22.0-30.0); Globulin 2.3 g/dL (1.3-3.2); Glucose 129 mg/dl (74-100); Total Protein,Serum 6.5 g/dl (6.3-8.2)
== END 2021-10-07 11:10 | disposition home or self-care (01) ==
LOC: INF 10:52
PROVIDERS: PCP Physician Assistant
DX: C83.70 Burkitt lymphoma, unspecified site (principal)
CPT/HCPCS: 36415; 80053; 85025

== ENCOUNTER 2021-10-11 10:53 | Outpatient (CLI) | payer SELFPAY ==
[2021-10-11 10:55] VITALS: BMI 35.9
[2021-10-11 11:11] LABS: Basophils # 0.1 K/mm3 (0-0.2); Basophils % 0.9 % (0.1-2.0); Eosinophils # 4.6 K/mm3 (0.0-0.4); Eosinophils % 64.3 % (0.1-12.0); Hematocrit 33.5 % (37.0-47.0); Lymphocytes # 0.9 K/mm3 (0.7-4.5); Lymphocytes % 12.1 % (10-50); Mean Corpuscular HGB Conc 32.7 g/dL (31.8-35.4); Mean Corpuscular Hemoglobin 34.8 pg (27.0-31.2); Mean Corpuscular Volume 106.4 fl (81-99); Mean Platelet Volume 7.6 fl (7.4-10.4); Monocytes # 0.4 K/mm3 (0.1-1.0); Monocytes % 5.6 % (1.7-9.3); Neutrophils # 1.2 K/mm3 (1.8-7.8); Neutrophils % 17.2 % (37.0-80.0); Platelet Count 368 K/mm3 (142-424); Red Blood Count 3.15 M/mm3 (4.20-5.40); Red Cell Distribution Width 18.7 % (11.5-17.5); White Blood Count 7.2 K/mm3 (4.8-10.8)
[2021-10-11 11:22] LABS: Alanine Aminotransferase 64 U/L (12-78); Albumin Level 3.8 g/dl (3.5-5.0); Albumin/Globulin Ratio 1.6 (1.1-1.8); Alkaline Phosphatase 87 U/L (38-126); Anion Gap 10.1 mEq/L (5-15); Aspartate Amino Transferase 72 U/L (14-36); Blood Urea Nitrogen 10 mg/dl (7-17); Calcium 9.3 mg/dl (8.4-10.2); Carbon Dioxide 27 mmol/L (22.0-30.0); Chloride 106 mmol/L (98-107); Creatinine Clearance Estimated 115 mL/min (50-200); Estimated Glomerular Filt Rate 74 ml/min (>60); GFR (African American) 90 ML/MIN (>60); Globulin 2.4 g/dL (1.3-3.2); Glucose 130 mg/dl (74-100); Potassium 4.1 mmoL/L (3.5-5.1); Sodium 139 mmol/L (136-145); Total Protein,Serum 6.2 g/dl (6.3-8.2)
[2021-10-11 11:23] LABS: Bilirubin,Total < 0.1 mg/dl (0.2-1.3)
== END 2021-10-11 11:28 | disposition home or self-care (01) ==
LOC: INF 10:53
PROVIDERS: PCP Nurse Practitioner
DX: C83.70 Burkitt lymphoma, unspecified site (principal); Z45.2 Encounter for adjustment and management of vascular access device
CPT/HCPCS: 36415; 80053; 85025

== ENCOUNTER 2021-10-20 10:18 | Outpatient (CLI) | payer OTHER, SELFPAY ==
[2021-10-20 10:21] VITALS: BMI 35.9
[2021-10-20 10:40] LABS: Basophils % 0.7 % (0.1-2.0); Eosinophils # 0.4 K/mm3 (0.0-0.4); Eosinophils % 39.2 % (0.1-12.0); Hematocrit 29.1 % (37.0-47.0); Hemoglobin 9.9 g/dL (12.2-16.2); Lymphocytes # 0.2 K/mm3 (0.7-4.5); Lymphocytes % 18.3 % (10-50); Mean Corpuscular HGB Conc 34.1 g/dL (31.8-35.4); Mean Corpuscular Hemoglobin 34.7 pg (27.0-31.2); Mean Corpuscular Volume 101.8 fl (81-99); Mean Platelet Volume 7.4 fl (7.4-10.4); Monocytes % 0.5 % (1.7-9.3); Neutrophils # 0.4 K/mm3 (1.8-7.8); Neutrophils % 41.4 % (37.0-80.0); Platelet Count 219 K/mm3 (142-424); Red Blood Count 2.86 M/mm3 (4.20-5.40); Red Cell Distribution Width 17.8 % (11.5-17.5)
[2021-10-20 10:45] LABS: White Blood Count 0.9 K/mm3 (4.8-10.8)
[2021-10-20 10:46] LABS: MANUAL DIFFERENTIAL MANUAL DIFFERENTIAL (MANUAL DIFF)
[2021-10-20 10:52] LABS: Chloride 105 mmol/L (98-107); Potassium 3.2 mmoL/L (3.5-5.1); Sodium 141 mmol/L (136-145)
[2021-10-20 10:55] LABS: Alanine Aminotransferase 91 U/L (12-78); Albumin Level 3.6 g/dl (3.5-5.0); Albumin/Globulin Ratio 1.6 (1.1-1.8); Alkaline Phosphatase 86 U/L (38-126); Anion Gap 11.2 mEq/L (5-15); Aspartate Amino Transferase 67 U/L (14-36); Bilirubin,Total < 0.1 mg/dl (0.2-1.3); Blood Urea Nitrogen 19 mg/dl (7-17); Carbon Dioxide 28 mmol/L (22.0-30.0); Creatinine Clearance Estimated 154 mL/min (50-200); Estimated Glomerular Filt Rate 104 ml/min (>60); GFR (African American) 126 ML/MIN (>60); Globulin 2.2 g/dL (1.3-3.2); Total Protein,Serum 5.8 g/dl (6.3-8.2)
[2021-10-20 10:56] LABS: Calcium 8.5 mg/dl (8.4-10.2); Glucose 182 mg/dl (74-100)
[2021-10-20 11:11] LABS: Eosinophils % 32 % (0-3); Lymphocytes % 24 % (10-50); Macrocytosis 2+; Monocytes % 4 % (2-9); Neutrophils % 40 % (42-76); Total Cells Counted 25
[2021-10-20 11:12] LABS: Hypochromasia 1+; Platelet Estimate Normal
== END 2021-10-20 11:05 | disposition home or self-care (01) ==
LOC: INF 10:18
PROVIDERS: PCP Nurse Practitioner
DX: Z45.2 Encounter for adjustment and management of vascular access device (principal); C83.70 Burkitt lymphoma, unspecified site
CPT/HCPCS: 36592; 80053; 85007; 85025

== ENCOUNTER 2021-10-25 11:06 | Outpatient (CLI) | payer OTHER, SELFPAY ==
[2021-10-25 11:13] VITALS: BMI 35.7
[2021-10-25 11:30] LABS: Basophils % 2.7 % (0.1-2.0); Eosinophils # 0.1 K/mm3 (0.0-0.4); Eosinophils % 4.5 % (0.1-12.0); Hematocrit 29.3 % (37.0-47.0); Hemoglobin 9.8 g/dL (12.2-16.2); Lymphocytes # 0.5 K/mm3 (0.7-4.5); Lymphocytes % 32.7 % (10-50); Mean Corpuscular HGB Conc 33.3 g/dL (31.8-35.4); Mean Corpuscular Hemoglobin 33.8 pg (27.0-31.2); Mean Corpuscular Volume 101.5 fl (81-99); Mean Platelet Volume 8.9 fl (7.4-10.4); Monocytes # 0.2 K/mm3 (0.1-1.0); Monocytes % 14.7 % (1.7-9.3); Neutrophils # 0.7 K/mm3 (1.8-7.8); Neutrophils % 45.4 % (37.0-80.0); Platelet Count 128 K/mm3 (142-424); Red Blood Count 2.89 M/mm3 (4.20-5.40); Red Cell Distribution Width 17.4 % (11.5-17.5); White Blood Count 1.6 K/mm3 (4.8-10.8)
[2021-10-25 11:37] LABS: Chloride 101 mmol/L (98-107); Potassium 4.2 mmoL/L (3.5-5.1); Sodium 141 mmol/L (136-145)
[2021-10-25 11:40] LABS: Alanine Aminotransferase 50 U/L (12-78); Albumin Level 3.8 g/dl (3.5-5.0); Albumin/Globulin Ratio 1.5 (1.1-1.8); Alkaline Phosphatase 92 U/L (38-126); Anion Gap 18.2 mEq/L (5-15); Aspartate Amino Transferase 38 U/L (14-36); Blood Urea Nitrogen 11 mg/dl (7-17); Calcium 8.9 mg/dl (8.4-10.2); Carbon Dioxide 26 mmol/L (22.0-30.0); Creatinine Clearance Estimated 115 mL/min (50-200); Estimated Glomerular Filt Rate 74 ml/min (>60); GFR (African American) 90 ML/MIN (>60); Globulin 2.5 g/dL (1.3-3.2); Glucose 140 mg/dl (74-100); Total Protein,Serum 6.3 g/dl (6.3-8.2)
[2021-10-25 11:41] LABS: Bilirubin,Total < 0.1 mg/dl (0.2-1.3)
[2021-10-25 11:45] VITALS: BP 125/75; PULSE 106; RESP 16; TEMP 36.4; O2SAT 97
== END 2021-10-25 11:45 | disposition home or self-care (01) ==
LOC: INF 11:06
PROVIDERS: PCP Nurse Practitioner
DX: Z45.2 Encounter for adjustment and management of vascular access device (principal); C83.70 Burkitt lymphoma, unspecified site
CPT/HCPCS: 36592; 80053; 85025

== ENCOUNTER 2021-10-28 08:30 | Outpatient (CLI) | payer SELFPAY ==
[2021-10-28 08:33] VITALS: BMI 35.7
[2021-10-28 08:50] LABS: Basophils # 0.2 K/mm3 (0-0.2); Basophils % 1.1 % (0.1-2.0); Eosinophils # 0.2 K/mm3 (0.0-0.4); Eosinophils % 1.5 % (0.1-12.0); Hemoglobin 10.1 g/dL (12.2-16.2); Lymphocytes # 1.9 K/mm3 (0.7-4.5); Mean Corpuscular HGB Conc 32.4 g/dL (31.8-35.4); Mean Corpuscular Hemoglobin 33.8 pg (27.0-31.2); Mean Corpuscular Volume 104.4 fl (81-99); Mean Platelet Volume 8.6 fl (7.4-10.4); Monocytes # 1.1 K/mm3 (0.1-1.0); Monocytes % 8.3 % (1.7-9.3); Neutrophils % 75.2 % (37.0-80.0); Platelet Count 276 K/mm3 (142-424); Red Blood Count 2.97 M/mm3 (4.20-5.40); Red Cell Distribution Width 17.7 % (11.5-17.5); White Blood Count 13.4 K/mm3 (4.8-10.8)
[2021-10-28 09:06] LABS: Chloride 103 mmol/L (98-107); Sodium 142 mmol/L (136-145)
[2021-10-28 09:08] LABS: Alanine Aminotransferase 61 U/L (12-78); Alkaline Phosphatase 142 U/L (38-126); Aspartate Amino Transferase 58 U/L (14-36); Blood Urea Nitrogen 9 mg/dl (7-17); Carbon Dioxide 27 mmol/L (22.0-30.0); Creatinine Clearance Estimated 102 mL/min (50-200); Estimated Glomerular Filt Rate 65 ml/min (>60); GFR (African American) 79 ML/MIN (>60)
[2021-10-28 09:09] LABS: Albumin Level 3.9 g/dl (3.5-5.0); Albumin/Globulin Ratio 1.7 (1.1-1.8); Calcium 9.1 mg/dl (8.4-10.2); Globulin 2.3 g/dL (1.3-3.2); Glucose 153 mg/dl (74-100); Total Protein,Serum 6.2 g/dl (6.3-8.2)
[2021-10-28 09:14] LABS: Bilirubin,Total < 0.1 mg/dl (0.2-1.3)
== END 2021-10-28 09:00 | disposition home or self-care (01) ==
LOC: INF 08:31
PROVIDERS: PCP Nurse Practitioner
DX: C83.70 Burkitt lymphoma, unspecified site (principal)
CPT/HCPCS: 36592; 80053; 85025

== ENCOUNTER 2021-11-01 11:07 | Outpatient (CLI) | payer SELFPAY ==
[2021-11-01 11:11] VITALS: BMI 35.9
[2021-11-01 11:24] LABS: Basophils # 0.1 K/mm3 (0-0.2); Basophils % 0.8 % (0.1-2.0); Eosinophils # 0.5 K/mm3 (0.0-0.4); Eosinophils % 3.5 % (0.1-12.0); Hematocrit 32.7 % (37.0-47.0); Hemoglobin 10.6 g/dL (12.2-16.2); Lymphocytes # 1.6 K/mm3 (0.7-4.5); Lymphocytes % 11.7 % (10-50); Mean Corpuscular HGB Conc 32.3 g/dL (31.8-35.4); Mean Corpuscular Hemoglobin 33.6 pg (27.0-31.2); Mean Corpuscular Volume 103.9 fl (81-99); Neutrophils # 10.7 K/mm3 (1.8-7.8); Platelet Count 425 K/mm3 (142-424); Red Blood Count 3.15 M/mm3 (4.20-5.40); Red Cell Distribution Width 18.1 % (11.5-17.5); White Blood Count 13.9 K/mm3 (4.8-10.8)
--- NOTE | 2021-11-01 11:30 | PC.NURSE ---
1130-per pt standing order pt is good to go home;hgb 10.6 and plt 425
[2021-11-01 12:03] LABS: Alanine Aminotransferase 87 U/L (12-78); Albumin/Globulin Ratio 1.8 (1.1-1.8); Alkaline Phosphatase 141 U/L (38-126); Anion Gap 14.6 mEq/L (5-15); Aspartate Amino Transferase 72 U/L (14-36); Blood Urea Nitrogen 12 mg/dl (7-17); Calcium 8.9 mg/dl (8.4-10.2); Carbon Dioxide 25 mmol/L (22.0-30.0); Chloride 103 mmol/L (98-107); Creatinine Clearance Estimated 103 mL/min (50-200); Estimated Glomerular Filt Rate 65 ml/min (>60); GFR (African American) 79 ML/MIN (>60); Globulin 2.2 g/dL (1.3-3.2); Glucose 155 mg/dl (74-100); Potassium 4.6 mmoL/L (3.5-5.1); Sodium 138 mmol/L (136-145); Total Protein,Serum 6.2 g/dl (6.3-8.2)
[2021-11-01 12:05] LABS: Bilirubin,Total < 0.1 mg/dl (0.2-1.3)
== END 2021-11-01 11:30 | disposition home or self-care (01) ==
LOC: INF 11:08
PROVIDERS: PCP Nurse Practitioner
DX: C83.70 Burkitt lymphoma, unspecified site (principal); Z45.2 Encounter for adjustment and management of vascular access device
CPT/HCPCS: 36592; 80053; 85025

== ENCOUNTER 2021-11-11 10:00 | Outpatient (CLI) | payer SELFPAY ==
[2021-11-11 10:08] VITALS: BMI 35.9
[2021-11-11 10:20] LABS: Basophils % 0.5 % (0.1-2.0); Eosinophils # 0.2 K/mm3 (0.0-0.4); Eosinophils % 7.9 % (0.1-12.0); Hematocrit 28.4 % (37.0-47.0); Lymphocytes # 0.2 K/mm3 (0.7-4.5); Lymphocytes % 7.2 % (10-50); Mean Corpuscular HGB Conc 31.8 g/dL (31.8-35.4); Mean Corpuscular Volume 103.9 fl (81-99); Mean Platelet Volume 7.3 fl (7.4-10.4); Monocytes % 0.9 % (1.7-9.3); Neutrophils # 2.1 K/mm3 (1.8-7.8); Neutrophils % 83.4 % (37.0-80.0); Platelet Count 228 K/mm3 (142-424); Red Blood Count 2.73 M/mm3 (4.20-5.40); Red Cell Distribution Width 17.7 % (11.5-17.5); White Blood Count 2.6 K/mm3 (4.8-10.8)
[2021-11-11 10:24] LABS: Chloride 101 mmol/L (98-107); Sodium 142 mmol/L (136-145)
[2021-11-11 10:25] LABS: Potassium 3.4 mmoL/L (3.5-5.1)
[2021-11-11 10:27] LABS: Alanine Aminotransferase 75 U/L (12-78); Albumin Level 3.8 g/dl (3.5-5.0); Alkaline Phosphatase 86 U/L (38-126); Anion Gap 13.4 mEq/L (5-15); Aspartate Amino Transferase 60 U/L (14-36); Bilirubin,Total 0.2 mg/dl (0.2-1.3); Blood Urea Nitrogen 18 mg/dl (7-17); Carbon Dioxide 31 mmol/L (22.0-30.0); Creatinine Clearance Estimated 132 mL/min (50-200); Estimated Glomerular Filt Rate 87 ml/min (>60); GFR (African American) 105 ML/MIN (>60); Globulin 1.9 g/dL (1.3-3.2); Total Protein,Serum 5.7 g/dl (6.3-8.2)
[2021-11-11 10:28] LABS: Calcium 8.6 mg/dl (8.4-10.2); Glucose 179 mg/dl (74-100)
== END 2021-11-11 10:30 | disposition home or self-care (01) ==
LOC: INF 10:04
PROVIDERS: PCP Nurse Practitioner
DX: C83.70 Burkitt lymphoma, unspecified site (principal); Z45.2 Encounter for adjustment and management of vascular access device
CPT/HCPCS: 36592; 80053; 85025

== ENCOUNTER 2021-11-15 11:01 | Outpatient (CLI) | payer SELFPAY ==
[2021-11-15 11:14] VITALS: BMI 35.2
[2021-11-15 11:18] VITALS: BP 132/78; PULSE 94; RESP 16; TEMP 36.4; O2SAT 98
[2021-11-15 11:43] LABS: Basophils % 2.1 % (0.1-2.0); Eosinophils # 0.1 K/mm3 (0.0-0.4); Eosinophils % 13.6 % (0.1-12.0); Hematocrit 25.3 % (37.0-47.0); Hemoglobin 8.4 g/dL (12.2-16.2); Lymphocytes # 0.3 K/mm3 (0.7-4.5); Lymphocytes % 61.7 % (10-50); Mean Corpuscular HGB Conc 33.3 g/dL (31.8-35.4); Mean Corpuscular Hemoglobin 33.3 pg (27.0-31.2); Mean Corpuscular Volume 99.7 fl (81-99); Mean Platelet Volume 9.4 fl (7.4-10.4); Monocytes # 0.1 K/mm3 (0.1-1.0); Monocytes % 11.8 % (1.7-9.3); Neutrophils # 0.1 K/mm3 (1.8-7.8); Platelet Count 72 K/mm3 (142-424); Red Blood Count 2.54 M/mm3 (4.20-5.40); Red Cell Distribution Width 17.7 % (11.5-17.5)
[2021-11-15 11:48] LABS: Chloride 102 mmol/L (98-107)
[2021-11-15 11:49] LABS: Potassium 3.9 mmoL/L (3.5-5.1); Sodium 138 mmol/L (136-145)
[2021-11-15 11:51] LABS: Alanine Aminotransferase 47 U/L (12-78); Albumin Level 3.8 g/dl (3.5-5.0); Albumin/Globulin Ratio 1.8 (1.1-1.8); Alkaline Phosphatase 78 U/L (38-126); Anion Gap 11.9 mEq/L (5-15); Aspartate Amino Transferase 36 U/L (14-36); Blood Urea Nitrogen 10 mg/dl (7-17); Calcium 8.7 mg/dl (8.4-10.2); Carbon Dioxide 28 mmol/L (22.0-30.0); Creatinine Clearance Estimated 129 mL/min (50-200); Estimated Glomerular Filt Rate 87 ml/min (>60); GFR (African American) 105 ML/MIN (>60); Globulin 2.1 g/dL (1.3-3.2); Glucose 128 mg/dl (74-100); Total Protein,Serum 5.9 g/dl (6.3-8.2)
[2021-11-15 11:52] LABS: Bilirubin,Total < 0.1 mg/dl (0.2-1.3); Neutrophils % 10.8 % (37.0-80.0)
[2021-11-15 11:56] LABS: White Blood Count 0.5 K/mm3 (4.8-10.8)
[2021-11-15 11:57] LABS: MANUAL DIFFERENTIAL MANUAL DIFFERENTIAL (MANUAL DIFF)
--- NOTE | 2021-11-15 11:57 | PC.NURSE ---
Courtney Gutierres called RN at 1152 to report wbc-[id number]. RN repeated and verified pt name, , and lab value. Result called and faxed to , no new orders noted.
[2021-11-15 12:13] LABS: Anisocytosis 1+; Hypochromasia 1+; Lymphocytes % 53 % (10-50); Macrocytosis 1+; Monocytes % 20 % (2-9); Neutrophils % 27 % (42-76); Total Cells Counted 15
[2021-11-15 12:14] LABS: Platelet Estimate Marked Decrease
== END 2021-11-15 12:05 | disposition home or self-care (01) ==
LOC: INF 11:03
PROVIDERS: PCP Nurse Practitioner; Visit Provider Internal Medicine Hematology & Oncology
DX: Z45.2 Encounter for adjustment and management of vascular access device (principal); C83.70 Burkitt lymphoma, unspecified site
CPT/HCPCS: 36592; 80053; 85007; 85025

== ENCOUNTER 2021-11-22 10:18 | Outpatient (CLI) | payer SELFPAY ==
[2021-11-22 10:22] VITALS: BMI 35.9
[2021-11-22 10:50] LABS: Basophils # 0.1 K/mm3 (0-0.2); Basophils % 0.9 % (0.1-2.0); Eosinophils # 0.4 K/mm3 (0.0-0.4); Eosinophils % 5.4 % (0.1-12.0); Hematocrit 31.6 % (37.0-47.0); Hemoglobin 10.1 g/dL (12.2-16.2); Lymphocytes # 1.3 K/mm3 (0.7-4.5); Lymphocytes % 20.1 % (10-50); Mean Corpuscular HGB Conc 31.9 g/dL (31.8-35.4); Mean Corpuscular Hemoglobin 33.2 pg (27.0-31.2); Mean Corpuscular Volume 104.1 fl (81-99); Mean Platelet Volume 8.3 fl (7.4-10.4); Monocytes # 0.7 K/mm3 (0.1-1.0); Monocytes % 10.2 % (1.7-9.3); Neutrophils # 4.1 K/mm3 (1.8-7.8); Neutrophils % 63.4 % (37.0-80.0); Platelet Count 455 K/mm3 (142-424); Red Blood Count 3.04 M/mm3 (4.20-5.40); Red Cell Distribution Width 19.2 % (11.5-17.5); White Blood Count 6.5 K/mm3 (4.8-10.8)
[2021-11-22 11:07] LABS: Alanine Aminotransferase 69 U/L (12-78); Albumin/Globulin Ratio 1.7 (1.1-1.8); Alkaline Phosphatase 143 U/L (38-126); Anion Gap 13.1 mEq/L (5-15); Aspartate Amino Transferase 69 U/L (14-36); Bilirubin,Total 0.3 mg/dl (0.2-1.3); Blood Urea Nitrogen 11 mg/dl (7-17); Calcium 9.1 mg/dl (8.4-10.2); Carbon Dioxide 27 mmol/L (22.0-30.0); Chloride 102 mmol/L (98-107); Creatinine Clearance Estimated 103 mL/min (50-200); Estimated Glomerular Filt Rate 65 ml/min (>60); GFR (African American) 79 ML/MIN (>60); Globulin 2.4 g/dL (1.3-3.2); Glucose 147 mg/dl (74-100); Potassium 4.1 mmoL/L (3.5-5.1); Sodium 138 mmol/L (136-145); Total Protein,Serum 6.4 g/dl (6.3-8.2)
== END 2021-11-22 10:50 | disposition home or self-care (01) ==
PROVIDERS: PCP Nurse Practitioner; Visit Provider Internal Medicine Hematology & Oncology
DX: C83.70 Burkitt lymphoma, unspecified site (principal); Z45.2 Encounter for adjustment and management of vascular access device
CPT/HCPCS: 36592; 80053; 85025

== ENCOUNTER → 2021-11-24 09:27 | Outpatient (CLI) | payer SELFPAY ==
[2021-11-24 10:20] VITALS: PULSE 91; PULSE 98
== END ==
PROVIDERS: PCP Nurse Practitioner; Visit Provider Internal Medicine Pulmonary Disease
DX: C83.70 Burkitt lymphoma, unspecified site (principal)
CPT/HCPCS: 94060; 94618; 94640; 94727; 94729